=== PATIENT | female | born 1970 | race Caucasian/White ===

== ENCOUNTER 2016-05-18 17:56 | Observation (INO) | payer MEDICARE, OTHER ==
[2016-05-18] MEDS ORDERED: ASPIRIN 81 MG CHEW PO STA (18:39)
[2016-05-18] MEDS ORDERED: NITROGLYCERIN OINT 1 INCH/GM PACKET TOPICAL STA (18:39)
--- NOTE | 2016-05-18 18:42 | ED ---
General Adult HPI - General Chief complaint: Chest Pain Stated complaint: chest pain Time Seen by Provider: 05/18/16 18:20 Source: patient, RN notes reviewed Mode of arrival: wheelchair Limitations: no limitations - History of Present Illness Initial comments: Patient is a pleasant 46-year-old female presenting to the emergency department complaining of chest discomfort. Symptoms are mild at this time. Patient has been having symptoms over the past couple of months. Symptoms are somewhat exertional. Patient has an ache in her chest with radiation to the left arm. Patient does have associated dyspnea. Patient no nausea. Occasional sweating. No history of previous cardiac problems. Patient has been under increased stress recently. - Related Data Home Medications Medication Instructions Recorded Confirmed Ranitidine HCl 150 mg PO BID 05/18/16 05/18/16 Allergies Allergy/AdvReac Type Severity Reaction Status Date / Time sulfamethoxazole AdvReac Nausea & Verified 05/18/16 19:22 [From ] Vomiting trimethoprim [From ] AdvReac Nausea & Verified 05/18/16 19:22 Vomiting Review of Systems ROS Statement: Those systems with pertinent positive or pertinent negative responses have been documented in the HPI. ROS Other: All systems not noted in ROS Statement are negative. Constitutional: Denies: fever Eyes: Denies: eye pain ENT: Denies: ear pain Respiratory: Reports: dyspnea. 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 lap with lysis of adhesions. oophorectomy. ammy masectomy with reconstruction Past Anesthesia/Blood Transfusion Reactions: Previous Problems w/ Anesthesia Additional Past Anesthesia/Blood Transfusion Reaction / Comment(s): pt states she experienced some apnea post op Past Psychological History: Anxiety, Bipolar, Depression Additional Psychological History / Comment(s): currently no medications due to insurance issues. pt states she is stable at this time. she states that it has been a few months since she has had medications. she now has insurance and will be making appts to see a primary care and a psychiatrist Smoking Status: Never smoker Past Alcohol Use History: None Reported Past Drug Use History: None Reported - Past Family History Mother Family Medical History: Cancer Additional Family Medical History / Comment(s): of breast cancer at age 40 Father Family Medical History: Coronary Artery Disease (CAD), Myocardial Infarction (CT ) Additional Family Medical History / Comment(s): "hardening of arteries", " from cardiac arrest due to pancreatitis" General Exam Limitations: no limitations General appearance: alert, in no apparent distress Head exam: Present: atraumatic Eye exam: Present: normal appearance, PERRL ENT exam: Present: normal oropharynx Respiratory exam: Present: normal lung sounds bilaterally. Absent: chest wall tenderness Cardiovascular Exam: Present: regular rate, normal rhythm Expanded Peripheral pulses: 2+: Radial (R), Radial (L), Dorsalis Pedis (R), Dorsalis Pedis (L) GI/Abdominal exam: Present: soft. Absent: tenderness Extremities exam: Present: normal inspection. Absent: pedal edema, calf tenderness Neurological exam: Present: alert Psychiatric exam: Present: normal affect, normal mood Skin exam: Absent: rash Course Vital Signs 05/18/16 05/18/16 18:06 18:59 Temperature 97.1 F L Pulse Rate 89 Respiratory 18 16 Rate Blood Pressure 139/83 O2 Sat by Pulse 98 Oximetry EKG Findings - EKG Comments: EKG Findings:: Normal sinus rhythm at 91. MN 142. QRS 98. QT 44. QTC 509. Normal axis. Normal QRS. Nonspecific T waves. Medical Decision Making - Medical Decision Making Patient reexamined and resting comfortably in bed. Patient updated on results and plan. Case discussed with practitioner Joceline, who will admit for hospital call. She is covering for Dr. quesada. Admission orders written. Consult placed for cardiology. IV heparin started. - Lab Data Result diagrams: 05/18/16 18:15 05/18/16 18:15 Lab Results 05/18/16 05/18/16 05/18/16 Range/Units 18:15 18:15 18:15 WBC 6.6 (3.8-10.6) k/uL RBC 4.58 (3.80-5.40) m/uL Hgb 14.3 (11.4-16.0) gm/dL Hct 39.6 (34.0-46.0) % MCV 86.5 (80.0-100.0) fL MCH 31.2 (25.0-35.0) pg MCHC 36.1 (31.0-37.0) g/dL RDW 13.1 (11.5-15.5) % Plt Count 277 (150-450) k/uL Neutrophils % 45 % Lymphocytes % 41 % Monocytes % 7 % Eosinophils % 4 % Basophils % 1 % Neutrophils # 3.0 (1.3-7.7) k/uL Lymphocytes # 2.7 (1.0-4.8) k/uL Monocytes # 0.4 (0-1.0) k/uL Eosinophils # 0.3 (0-0.7) k/uL Basophils # 0.0 (0-0.2) k/uL PT (9.0-12.0) sec INR (<1.1) APTT (22.0-30.0) sec Sodium 143 (137-145) mmol/L Potassium 3.7 (3.5-5.1) mmol/L Chloride 106 (98-107) mmol/L Carbon Dioxide 26 (22-30) mmol/L Anion Gap 11 mmol/L BUN 11 (7-17) mg/dL Creatinine 0.77 (0.52-1.04) mg/dL Est GFR (MDRD) Af Amer >60 (>60 ml/min/1.73 sqM) Est GFR (MDRD) Non-Af >60 (>60 ml/min/1.73 sqM) Glucose 103 H (74-99) mg/dL Calcium 9.9 (8.4-10.2) mg/dL Magnesium 2.1 (1.6-2.3) mg/dL Total Bilirubin 0.7 (0.2-1.3) mg/dL AST 25 (14-36) U/L ALT 29 (9-52) U/L Alkaline Phosphatase 66 (38-126) U/L Total Creatine Kinase 93 (30-135) U/L CK-MB (CK-2) 0.7 (0.0-2.4) ng/mL CK-MB (CK-2) Rel Index 0.8 Troponin I <0.012 (0.000-0.034) ng/mL Total Protein 7.4 (6.3-8.2) g/dL Albumin 4.4 (3.5-5.0) g/dL 05/18/16 Range/Units 18:15 WBC (3.8-10.6) k/uL RBC (3.80-5.40) m/uL Hgb (11.4-16.0) gm/dL Hct (34.0-46.0) % MCV (80.0-100.0) fL MCH (25.0-35.0) pg MCHC (31.0-37.0) g/dL RDW (11.5-15.5) % Plt Count (150-450) k/uL Neutrophils % % Lymphocytes % % Monocytes % % Eosinophils % % Basophils % % Neutrophils # (1.3-7.7) k/uL Lymphocytes # (1.0-4.8) k/uL Monocytes # (0-1.0) k/uL Eosinophils # (0-0.7) k/uL Basophils # (0-0.2) k/uL PT 10.2 (9.0-12.0) sec INR 1.0 (<1.1) APTT 23.9 (22.0-30.0) sec Sodium (137-145) mmol/L Potassium (3.5-5.1) mmol/L Chloride (98-107) mmol/L Carbon Dioxide (22-30) mmol/L Anion Gap mmol/L BUN (7-17) mg/dL Creatinine (0.52-1.04) mg/dL Est GFR (MDRD) Af Amer (>60 ml/min/1.73 sqM) Est GFR (MDRD) Non-Af (>60 ml/min/1.73 sqM) Glucose (74-99) mg/dL Calcium (8.4-10.2) mg/dL Magnesium (1.6-2.3) mg/dL Total Bilirubin (0.2-1.3) mg/dL AST (14-36) U/L ALT (9-52) U/L Alkaline Phosphatase (38-126) U/L Total Creatine Kinase (30-135) U/L CK-MB (CK-2) (0.0-2.4) ng/mL CK-MB (CK-2) Rel Index Troponin I (0.000-0.034) ng/mL Total Protein (6.3-8.2) g/dL Albumin (3.5-5.0) g/dL - Radiology Data Radiology results: image reviewed (Chest x-ray shows no acute process) Critical Care Time Critical Care Time: Yes Total Critical Care Time: 32 Disposition Clinical Impression: Unstable angina pectoris Disposition: ADMITTED IP TO THIS HOSP
[2016-05-18 19:03] LABS: Basophils % (A) 1 %; CH 30.9; CHCM 35.9; Eosinophils # (A) 0.3 k/uL (0-0.7); Eosinophils % (A) 4 %; HCT 39.6 % (34.0-46.0); HDW 2.94; HGB 14.3 gm/dL (11.4-16.0); Luc # (Auto) 0.18; Luc % (Auto) 3; Lymphocytes # (A) 2.7 k/uL (1.0-4.8); Lymphocytes % (A) 41 %; MCH 31.2 pg (25.0-35.0); MCHC 36.1 g/dL (31.0-37.0); MCV 86.5 fL (80.0-100.0); Mean Platelet Volume 7.3; Monocytes # (A) 0.4 k/uL (0-1.0); Monocytes % (A) 7 %; Neutrophils % (A) 45 %; RBC 4.58 m/uL (3.80-5.40); RDW 13.1 % (11.5-15.5); WBC 6.6 k/uL (3.8-10.6); WBC (Perox) 6.64
[2016-05-18 19:12] LABS: Partial Thromboplastin Time 23.9 sec (22.0-30.0); Prothrombin Time 10.2 sec (9.0-12.0)
--- NOTE | 2016-05-18 19:12 | XR ---
EXAMINATION TYPE: XR chest 2V DATE OF EXAM: 05/18/2016 7:07 PM COMPARISON: 04/27/2010 HISTORY: Chest pain TECHNIQUE: Frontal and lateral views of the chest are obtained. FINDINGS: Heart and mediastinum are normal. Lungs are clear. Diaphragm is normal. There are chest le ads. Bony thorax is intact. IMPRESSION: Normal chest. No change.
[2016-05-18 19:14] LABS: ALT 29 U/L (9-52); AST 25 U/L (14-36); Alkaline Phosphatase 66 U/L (38-126); Anion Gap 11 mmol/L; Blood Urea Nitrogen 11 mg/dL (7-17); Calcium 9.9 mg/dL (8.4-10.2); Carbon Dioxide 26 mmol/L (22-30); Chloride 106 mmol/L (98-107); Glucose 103 mg/dL (74-99); Magnesium 2.1 mg/dL (1.6-2.3); Non-African American GFR(MDRD) >60 (>60 ml/min/1.73 sqM); Potassium 3.7 mmol/L (3.5-5.1); Sodium 143 mmol/L (137-145); Total Bilirubin 0.7 mg/dL (0.2-1.3); Total Protein 7.4 g/dL (6.3-8.2)
[2016-05-18 19:23] LABS: Creatine Kinase 93 U/L (30-135)
[2016-05-18 19:36] LABS: Creatine Kinase MB 0.7 ng/mL (0.0-2.4); Troponin I <0.012 ng/mL (0.000-0.034)
[2016-05-18] MEDS ORDERED: NITROGLYCERIN SL TABS 0.4 MG TAB SUBLINGUAL PRN (20:20)
[2016-05-18] MEDS ORDERED: HEPARIN SODIUM,PORCINE 5,000 UNIT/ML 1 ML VIAL IV PRN (20:20)
[2016-05-18] MEDS ORDERED: HEPARIN SODIUM,PORCINE 5,000 UNIT/ML 1 ML VIAL IV ONE (20:20)
[2016-05-18] MEDS ORDERED: HEPARIN SODIUM,PORCINE/D5W PMX 25,000 UNIT in DEXTROSE/WATER 1 500ML.BAG IV SCH (20:30)
[2016-05-18] MEDS ORDERED: FAMOTIDINE 20 MG TAB PO STA (20:56)
[2016-05-18] MEDS: NITROGLYCERIN OINT 1 INCH/GM PACKET TOPICAL SCH (22:13)
[2016-05-18] MEDS: FAMOTIDINE 20 MG TAB PO SCH (22:54)
[2016-05-19 04:55] LABS: Creatine Kinase 66 U/L (30-135); Creatine Kinase MB 0.5 ng/mL (0.0-2.4); Troponin I <0.012 ng/mL (0.000-0.034)
[2016-05-19] MEDS: NITROGLYCERIN OINT 1 INCH/GM PACKET TOPICAL SCH ×2 (06:24→12:50)
[2016-05-19 07:20] LABS: Creatine Kinase 70 U/L (30-135)
[2016-05-19 07:32] LABS: Creatine Kinase MB 0.5 ng/mL (0.0-2.4); Troponin I <0.012 ng/mL (0.000-0.034)
[2016-05-19 07:48] LABS: Mean Platelet Volume 7.8
[2016-05-19 08:04] LABS: Cholesterol 210 mg/dL (<200); HDL Cholesterol 48 mg/dL (40-60); Triglycerides 210 mg/dL (<150)
[2016-05-19 08:06] VITALS: TEMP 98.2
[2016-05-19] MEDS ORDERED: ASPIRIN 325 MG TAB PO SCH (09:00)
--- NOTE | 2016-05-19 11:05 | CONS ---
DATE OF CONSULTATION: Kellie Fox is a 46-year-old lady with a lot of multiple medical problems in the form of anxiety, some depression and also has seen her psychiatrist in the past, but stopped seeing physicians because of insurance issues. She presented to the hospital with an episode of what she described as a vague nondescript sharp pressure in the chest that lasted a few seconds and came on and off. The pain quality is very atypical and did not occur with physical activity. She is resting comfortably without symptoms. PAST MEDICAL HISTORY: Remarkable for anxiety, depression, and also some borderline hypertension. She has a history of bilateral mastectomy with reconstruction mainly because of a strong family history of breast cancer. At the time of my evaluation, she is resting comfortably without symptoms. SOCIAL HISTORY: The patient does not consume alcohol and does not smoke. MEDICATIONS AT HOME: She takes only ranitidine occasionally. Allergies are SULFA. On examination, blood pressure is 128/70, pulse rate 70 per minute, regular. HEENT: Unremarkable. Fundus was not examined by me. Neck is supple. No JVD. I do not hear a carotid bruit. There is no thyromegaly. Heart exam reveals S1 and S2 heard normally without rub, murmur or gallop. Lungs are clear. Abdomen is soft, nontender. Lower extremities reveal normal pulses. No edema. Central nervous system is normal. EKG revealed sinus mechanism. No acute changes. Chest x-ray did not reveal any significant abnormalities. Laboratory data revealed unremarkable troponins. IMPRESSION: 1. Atypical chest pain. 2. Anxiety and probably some depression. 3. Family history of coronary artery disease. RECOMMENDATIONS: I am recommending an echocardiogram and a stress echo and if these are normal, she can be discharged. I discussed my thoughts in detail with the patient. Thank you very much for the consult.
--- NOTE | 2016-05-19 11:36 | ECHOS ---
DATE OF SERVICE: 05/19/2016 AGE: 46Y SEX: F HT: 67" WT: 223 lbs. Protocol Ramo: X Others: Stress Echo Stage: 2 Dur. of Exercise: 5:15 *Heart Rate Blood Pressure *Rest: 82 Rest: 124/89 * *Max. Achieved: 156 Maximum BP: 169/90 85% PMHR: 147 100% PMHR: 173 *METS: 7.1 INDICATIONS: Unstable angina MEDICATIONS: Ranitidine. Patient was exercised for a total period of 5 minutes. The peak heart rate of 156 was achieved. Maximum blood pressure of 169/90 mmHg was noted. A resting EKG shows normal sinus rhythm with normal NM interval and QRS duration and normal ST-T waves. Exercise J-point depression with upsloping ST segments were noted. Patient complained of some atypical left arm pain during exercise. Baseline echocardiographic images reveal a normal left ventricular chamber size with normal left ventricular systolic function. In the immediate postexercise period, normal increase in the wall thickness and contractility is noted. This stress echocardiographic study is negative for stress-induced ischemia. EKG portion of the stress test is not suggestive of ischemia. Patient complained of atypical left arm pain during exercise.
[2016-05-19] MEDS: FAMOTIDINE 20 MG TAB PO SCH (11:45)
[2016-05-19 11:48] VITALS: BP 119/81; PULSE 79; RESP 18
--- NOTE | 2016-05-19 12:25 | ECHOF ---
Referral Reason:chest pain MEASUREMENTS -------- HEIGHT: 170.2 cm WEIGHT: 101.2 kg BP: 126/89 RVIDd: 3.0 cm (< 3.3) IVSd: 1.1 cm (0.6 - 1.1) LVIDd: 4.3 cm (3.9 - 5.3) LVPWd: 1.1 cm (0.6 - 1.1) IVSs: 1.5 cm LVIDs: 2.8 cm LVPWs: 1.5 cm LA Diam: 3.3 cm (2.7 - 3.8) LAESV Index (A-L): 14.41 ml/m Ao Diam: 3.0 cm (2.0 - 3.7) AV Cusp: 2.1 cm (1.5 - 2.6) MV EXCURSION: 12.755 mm (> 18.000) MV EF SLOPE: 73 mm/s (70 - 150) EPSS: 0.4 cm MV E Thad: 0.72 m/s MV DecT: 179 ms MV A Thad: 1.00 m/s MV E/A Ratio: 0.72 FINDINGS -------- Sinus rhythm. This was a technically adequate study. The left ventricular size is normal. There is borderline concentric left ventricular hypertrophy. The right ventricle is normal in size. Normal LA size by volume 22+/-6 ml/m2. The right atrium is normal in size. The aortic valve is trileaflet and appears structurally normal. Normal appearing mitral valve. No mitral regurgitation. The tricuspid valve appears structurally normal. The pulmonic valve is normal. There is no pulmonic regurgitation present. The aortic root size is normal. Normal inferior vena cava with normal inspiratory collapse consistent with estimated right atrial pressure of 5 mmHg. The pericardium is normal. CONCLUSIONS -------- 1. Sinus rhythm. 2. The tricuspid valve appears structurally normal. 3. The pulmonic valve is normal. 4. The aortic root size is normal. 5. Normal inferior vena cava with normal inspiratory collapse consistent with estimated right atrial pressure of 5 mmHg. 6. The pericardium is normal. 7. This was a technically adequate study. 8. The left ventricular size is normal. 9. There is borderline concentric left ventricular hypertrophy. 10. The right ventricle is normal in size. 11. Normal LA size by volume 22+/-6 ml/m2. 12. The right atrium is normal in size. 13. The aortic valve is trileaflet and appears structurally normal. 14. Normal appearing mitral valve. ELEMENTARY READING SPECIALIST: Susu Ngo RDCS
--- NOTE | 2016-05-20 10:20 | HP ---
DATE OF ADMISSION: HISTORY AND PHYSICAL AND DISCHARGE SUMMARY REASON FOR ADMISSION: Chest pain. HISTORY OF PRESENTING ILLNESS: This is a 46-year-old female with history of GERD comes into the hospital with complaints of intermittent chest pain that starts in her lower chest midsternal location to epigastric region radiating to her left shoulder. The pain is usually about 5 to 6 out of 10. No alleviating or aggravating factors reported. Denies having any association with meals, deep breathing, exertion. In the emergency room, the patient's EKG did not reveal ST-T wave changes. Initial cardiac enzymes were negative. At the time of my evaluation, the patient denies having any headaches, no blurry vision, nausea, vomiting, urinary urgency, difficulty in breathing. Patient does state to have some pain that is reproducible in the upper abdominal region. Past medical history includes GERD. Past surgical history includes multiple endoscopies. Social history includes remote history of smoking. No alcohol or illicit drug use. FAMILY HISTORY: Premature heart disease reported on the paternal side. REVIEW OF SYSTEMS: Fourteen-point review of system was done; none pertinent other than other than what was mentioned above. Medications include Zantac 150 mg p.o. b.i.d. ALLERGIES: BACTRIM and TRIMETHOPRIM. PHYSICAL EXAMINATION: VITAL SIGNS: Temperature is 98.2, heart rate 62, respiratory rate 16, blood pressure 123/79, saturating 99 on 2 L of supplemental oxygen. PHYSICAL EXAM: Temperature is , heart rate is , respiration rate is per minute, blood pressure is and patient is saturating % on room air. GENERALLY: Patient appears to be alert, oriented x3. HEENT: The pupils are equal and reactive to light and accommodation. HEART: S1, S2 present. No murmur appreciated. LUNGS: Good air entry. No wheezing or rhonchi noted. ABDOMINAL EXAM: There is tenderness in the epigastric region, focal. GENITOURINARY: No Hernandez in place. EXTREMITIES: Pulses can be palpated distally. Denies any tenderness on gross palpation. SKIN: On a gross skin exam does not appear to have any purpura or any skin rashes that were noted. NEUROLOGICALLY: Grossly cranial nerves 2-12 intact. No motor or sensory deficits noted. Laboratory data includes hemoglobin 14.3, hematocrit 39.6, platelets of 277, white count 6.6. Sodium 143, potassium 3.7, chloride 106, bicarb 26, BUN 11, creatinine 0.77. Cholesterol is elevated; however, LDL is 120. Cardiac enzymes x3 are less than 0.012. ASSESSMENT AND PLAN: 1. Atypical chest. 2. Gastroesophageal reflux disease. 3. Borderline elevated cholesterol. In regards to cholesterol, did discuss weight and conservative measures at this time. Patient on questioning further in regards to her pain in the upper epigastric region does state to have severe GERD, has had an upper endoscopy over 6 months ago, was told that it was within normal limits. However, over the last few weeks, the patient apparently has been having night symptoms of epigastric pain and reflux symptoms, has noted some dark stools in the recent times. Patient apparently was told that she has some precancerous cells in the lower esophagus as well. I did discuss the night symptoms are concerning as they are alarm symptoms and that patient needs to undergo another endoscopy. Hence, patient will be referred to a kiln remover, has seen Dr. Verma in the past. Patient will be started on Prilosec 20 mg p.o. b.i.d. as a trial and as patient has had a recent endoscopy will be discharged home to follow up. I did discuss if patient's symptoms worsen should come back in to the hospital. The pain is concerning for a large gastric ulcer. However, a trial of PPI will be attempted as patient's hemoglobin is stable. FOLLOWUPS: Dr. Verma. Medication changes as described above. The patient is discharged home in stable condition.
== END 2016-05-19 15:45 | disposition home or self-care (01) ==
LOC: EC 17:56 → 3OBS 20:20
PROVIDERS: ADMIT Internal Medicine; ATTEND Internal Medicine
DX: R07.89 Other chest pain (principal); K21.9 Gastro-esophageal reflux disease without esophagitis; E78.00 Pure hypercholesterolemia, unspecified; I10 Essential (primary) hypertension; Z79.899 Other long term (current) drug therapy; Z87.891 Personal history of nicotine dependence; R06.00 Dyspnea, unspecified; Z88.1 Allergy status to other antibiotic agents; Z82.49 Family history of ischemic heart disease and other diseases of the circulatory system
CPT/HCPCS: 99291 ×2; 96365 ×2; 96376 ×2; 36415; 93005; 93017; 93306; 80061; 80053; 82550 ×2; 82553 ×2; 83735; 84484 ×2; 85025; 85049; 85610; 85730 ×2; 71020; G0378 ×2; C8928; J1644 ×3; Q9957; 93350; 96366

== ENCOUNTER → 2016-12-19 | Outpatient (CLI) | payer MEDICARE, OTHER ==
--- NOTE | 2016-12-19 18:41 | CONS ---
CONSULTATION REASON FOR CONSULTATION: Chronic hypersomnia. This is a 46-year-old female patient who is coming in to be evaluated for chronic hypersomnia. She has excessive fatigue and sleepiness and she is having a hard time keeping herself awake during the day. She goes to bed around 9:30 p.m. and she wakes up 8:00 am in the morning. As such, she is having at least 9 to 10 hours of sleep every night. She may take a nap during the day in addition. She has some limited snoring. No witnessed apneas. No restlessness in lower extremities. No waking up in the middle of the night, choking or gasping for air. In fact, this patient has been in sleep center back in 2009. She had an evaluation with Dr. Andre. Back then, the patient used to weigh 202 pounds and she has gained around 20 pounds since then. She underwent a screening polysomnogram back then and she was found to have mild snoring without any significant sleep breathing disorder. Her apnea-hypopnea index was less than 5 and she did not demonstrate any significant nocturnal oxygen desaturation. Her sleep study back then showed increased sleep efficiency of 94%. The sleep architecture was essentially within normal without any over-representation of REM sleep. She had a latency to sleep onset of 20 minutes. No periodic limb movements. As such, the patient had a 2nd day MSLT that showed a mean sleep latency of 5.4 minutes and the patient did not have any REM onset sleep. Based on these findings, the patient was given Adderall, which she took for quite some time with good success; however, ultimately medication was stopped, as the patient has lost her insurance. Clinically, the patient is having the same symptoms that she used to have back in 2009. No sleepwalking. No sleep talking. No parasomnias. No head trauma. No substance abuse. She has some degree of anxiety and depression for which she was started on Abilify by her psychiatrist. No excessive eating. No unusual or aggressive behavior at nighttime. Her current Holbrook Score is at 14. PAST MEDICAL HISTORY: 1. Chronic hypersomnia. 2. Anxiety. 3. Depression. 4. Positive BRCA gene and the patient has undergone bilateral hysterectomy with oophorectomy and hysterectomy in addition to history of hypertension. SURGICAL HISTORY: Includes bilateral salpingo-oophorectomy, hysterectomy and bilateral mastectomy with reconstruction surgery. FAMILY HISTORY: Negative for sleep apnea, negative for narcolepsy. Sister has multiple myeloma, another sister with breast cancer and her mother had breast cancer. OUTPATIENT MEDICATION LIST: Includes: 1. Abilify. 2. Potassium tablets. 3. Lasix tablets and. 4. Lisinopril. SOCIAL HISTORY: Nonsmoker. No history of alcoholism. No history of IV drugs. REVIEW OF SYSTEMS: A 12-point review of system was done and positive findings are all mentioned above in the history of present illness. No history of falling asleep while driving. Her weight is up by around 20 pounds over the past 10 years. She sleeps in different body positions. She may take a nap or two during the day. No nocturia. No nocturnal nighttime palpitations. Occasional nighttime heartburn. She has anxiety. No . No sexual dysfunction. No irritability. She is worried about her sleepiness in general. CURRENT VITAL SIGNS: Her blood pressure is 133/83, pulse 90, respirations 16, temperature 98.3, saturation 94% on room air. BMI 34.8, weight is 226, height is 5 feet 3 inches. Neck size is 14-1/2 inches. GENERAL APPEARANCE: Calm comfortable. No acute distress. HEAD: Atraumatic, normocephalic. NECK: Supple. There is no JVD. No goiter or neck masses. Mallampati class IV. LUNGS: Clear to auscultation. HEART: Sounds regular rate and rhythm. Normal S1, S2. No S3, S4. No murmurs. ABDOMEN: Soft, nontender. No organomegaly. EXTREMITIES: No edema. No cyanosis or clubbing. IMPRESSION: 1. Chronic hypersomnia. The patient was investigated back in 2009. Investigation included polysomnogram and 2nd day multiple sleep latency tests. Based on the findings, there was no evidence of any sleep breathing disorder or any other abnormalities causing disruption in her sleep quality. In fact, her polysomnogram was negative. Multiple sleep latency tests confirms pathologic sleepiness and the patient was given a diagnosis of primary idiopathic hypersomnia. Her mean sleep latency was 5.4 hours. She did not fit the criteria of narcolepsy. Based on that, the patient was given stimulants. 2. Chronic hypersomnia with an Holbrook score of 14. 3. Obesity. 4. Anxiety/depression. 5. Hypertension. PLAN: There are no obvious comorbidities contributing to the patient's hypersomnia. Obviously, a low-grade depression maybe one component. Based on that, I am going to ask this patient to be re-evaluated again with her psychiatrist and see if there is any role for any stimulating antidepressant. In addition, the patient will be given Provigil 12 mg p.o. daily. I did start that and the patient will see me back in followup in 6 weeks' time. THADDEUS / LIZ: [id number] /
== END | disposition home or self-care (01) ==
LOC: SLEEP 16:30
PROVIDERS: ATTEND Internal Medicine Critical Care Medicine
DX: G47.10 Hypersomnia, unspecified (principal); F32.9 Major depressive disorder, single episode, unspecified; F41.9 Anxiety disorder, unspecified; I10 Essential (primary) hypertension; E66.9 Obesity, unspecified; Z68.34 Body mass index [BMI] 34.0-34.9, adult; Z79.899 Other long term (current) drug therapy
CPT/HCPCS: 99204; 99211

== ENCOUNTER → 2017-04-09 | Outpatient (CLI) | payer MEDICARE, OTHER ==
[2017-04-09 10:35] LABS: ALT 38 U/L (9-52); AST 26 U/L (14-36); Cholesterol 222 mg/dL (<200); HDL Cholesterol 47 mg/dL (40-60); LDL Cholesterol,Calculated 145 mg/dL (0-99); Triglycerides 152 mg/dL (<150)
== END | disposition home or self-care (01) ==
LOC: LABWHC1 09:22
PROVIDERS: ATTEND Internal Medicine Cardiovascular Disease
DX: E78.5 Hyperlipidemia, unspecified (principal)
CPT/HCPCS: 36415; 80061; 84450; 84460

== ENCOUNTER → 2017-05-03 | Outpatient (CLI) | payer MEDICARE, OTHER ==
--- NOTE | 2017-05-03 13:42 | SFUN ---
SLEEP STUDY FOLLOW UP NOTE DATE OF SERVICE: 05/03/2017 A 47-year-old lady had been followed in sleep center to discuss results of sleep studies for treatment of severe excessive daytime sleepiness. The patient had been diagnosed with hypersomnia in 2009. At that time during the multiple sleep latency test, mean sleep latency was 5.4 minutes and the patient slept at that time on the previous night for 6.8 hours. At that time, patient was treated with Adderall and feels better. Presently, the patient had another polysomnogram with following multiple sleep latency test. Polysomnogram did not show any significant respiratory abnormalities and multiple sleep latency test showed mean sleep latency only 6.8 minutes with one sleep onset REM period, but on the previous night, the patient slept only for 4 hours. Patient continued to have symptoms of significant excessive daytime sleepiness. [place] Sleepiness Scale scoring today is 15. MEDICATIONS: Abilify, Klonopin, lisinopril, Protonix. PHYSICAL EXAM: During physical exam, patient in no distress. VITAL SIGNS: BP 136/94 on the right arm, on left arm 138/94, RR 16, height 5 feet, 7 inches, weight 224, BMI 35, temp 98.1, oxygen saturation on room air 97%. HEENT: PERRLA, EOMI. Oropharynx moderately low position of soft palate. NECK: Supple, no JVD. Thyroid is not palpable. LUNGS: Clear to percussion and to auscultation. Good air exchange. No wheezing or rhonchi. HEART: S1, S2 regular. No murmurs, gallops, or rubs. ABDOMEN: Slightly obese. EXTREMITIES: No clubbing or cyanosis. BIOPHYSICS TEACHER: Awake, alert, and oriented X3. Cranial nerves 2 to 7 intact. There is no fasciculation or atrophy. noted. No focal deficits observed. IMPRESSION: 1. Significant excessive daytime sleepiness, confirmed by multiple sleep latency test in 2009. At the present time, multiple sleep latency test again showed short sleep latency, but on the previous night, the patient slept only for 4 hours, one sleep onset REM period had been documented. Differential diagnosis include idiopathic hypersomnia and narcolepsy. 2. No significant respiratory abnormalities have been documented during the sleep study. 3. Episodes of hypertension in medical office. 4. Acid reflux. 5. Obesity. 6. History of depression. 7. History of anxiety. 8. History of bipolar disorder. 9. Status post total hysterectomy. 10.Status post bilateral mastectomy. PLAN: 1. The patient will be started on small doses of Adderall to prevent symptoms of excessive daytime sleepiness. 2. Sleep hygiene with regular time in bed for at least 8 hours. 3. No driving if feeling any sleepiness. 4. Daytime naps permitted. Thank you very much for allowing me to participate in management of your patient. Sincerely, Peter Andre MD, PhD, FAASM Diplomat of [employer] [facility] [place] MMODL / IJN: [id number] /
== END | disposition home or self-care (01) ==
LOC: SLEEP 11:49
PROVIDERS: ATTEND Internal Medicine
DX: G47.10 Hypersomnia, unspecified (principal); I10 Essential (primary) hypertension; K21.9 Gastro-esophageal reflux disease without esophagitis; E66.9 Obesity, unspecified; Z86.59 Personal history of other mental and behavioral disorders; Z90.710 Acquired absence of both cervix and uterus; Z90.13 Acquired absence of bilateral breasts and nipples; Z79.899 Other long term (current) drug therapy

== ENCOUNTER → 2017-07-19 | Outpatient (CLI) | payer MEDICARE, OTHER ==
--- NOTE | 2017-07-19 17:54 | PN ---
PROGRESS NOTE DATE OF SERVICE: 07/19/2017 A 47-year-old lady who has been followed in sleep center for treatment of possible narcolepsy. Patient was started on treatment with Adderall 5 mg at 9:00 a.m. and at 2:00 p.m. No side effects. No tachycardia. No increasing blood pressure, but no improving of patient feeling during the day, also. She still continues to feel sleepiness. [place] Sleepiness Scale today is 13. MEDICATIONS: 1. Abilify. 2. Klonopin. 3. Lisinopril. 4. Protonix. 5. Adderall. PHYSICAL EXAMINATION: GENERAL Patient in no distress. VITAL SIGNS BP 126/66, HR 77, RR 18, height 5 feet 7-1/3 inches, weight 225.2, BMI 34.9, temp 98.1, oxygen saturation at room air 98%. HEENT PERRLA, EOMI, evaluation of oropharynx showed tongue protrudes midline, moderately low position of soft palate. Neck Supple, no JVD. Thyroid is not palpable. LUNGS Clear to percussion and to auscultation. Good air exchange. No wheezing or rhonchi. HEART S1, S2 regular. No murmurs, gallops, or rubs. ABDOMEN Slightly obese, soft and nontender. Bowel sounds are present. No organomegaly appreciated. EXTREMITIES No clubbing or cyanosis. PROSTHETIST Awake, alert, and oriented X3. Cranial nerves 2 to 7 intact. There is no fasciculation or atrophy. noted. No focal deficits observed. IMPRESSION: 1. Possible narcolepsy confirmed by multiple sleep latency test in 2009. The patient continued to have symptoms of excessive daytime sleepiness. 2. History of episodes of hypertension in medical office. No hypertension today. 3. Acid reflux. 4. Obesity. 5. History of depression. 6. History of anxiety. 7. History of bipolar disorder. 8. Status post total hysterectomy. 9. Status post bilateral mastectomy. PLAN: 1. The patient will continue to use Adderall. I will increase dose to 10 mg 2 times a day at 9:00 a.m. and 2:00 p.m. 2. Precautions related to driving: No driving if feeling sleepiness. 3. A losing weight. 4. Sleep hygiene with regular time in bed for at least 8 hours. Thank you very much for allowing me to participate in management of your patient. Sincerely, Peter Andre MD, PhD, FAASM Diplomat of [place] [employer] [place] [employer] Shredded Filler Machine W[employer] [facility] [place] MMCRISTOBAL / LIZ: [id number] /
== END | disposition home or self-care (01) ==
LOC: SLEEP 16:55
PROVIDERS: ATTEND Internal Medicine
DX: G47.10 Hypersomnia, unspecified (principal); K21.9 Gastro-esophageal reflux disease without esophagitis; E66.9 Obesity, unspecified; Z68.34 Body mass index [BMI] 34.0-34.9, adult; Z86.59 Personal history of other mental and behavioral disorders; Z90.710 Acquired absence of both cervix and uterus; Z90.13 Acquired absence of bilateral breasts and nipples; Z79.899 Other long term (current) drug therapy

== ENCOUNTER → 2017-10-18 | Outpatient (CLI) | payer MEDICARE, OTHER ==
--- NOTE | 2017-10-18 20:03 | PN ---
PROGRESS NOTE DATE OF SERVICE: 10/18/2017 The 47-year-old lady who has been followed in Sleep Center for treatment of possible narcolepsy. Presently, patient is on treatment with Adderall 10 mg 2 times a day and with this regimen, she feel that her sleepiness is under control. [place] Sleepiness Scale today is 10, which is better than during previous visits. MEDICATIONS: Abilify, Klonopin, lisinopril, Protonix, and Adderall, Lipitor. PHYSICAL EXAM: Patient in no distress. BP 127/69, HR 79, RR 18, height 5 feet 7 inches, weight 221.4, BMI 36.6, temperature 98.2, oxygen saturation room air 96%. Oropharynx moderately low position of soft palate. Abdomen slightly obese. Neck Supple, no JVD. Thyroid is not palpable. LUNGS Clear to percussion and to auscultation. Good air exchange. No wheezing or rhonchi. HEART S1, S2 regular. No murmurs, gallops, or rubs. ABDOMEN: Obese. Soft and nontender. Bowel sounds are present. No organomegaly appreciated. EXTREMITIES No clubbing or cyanosis. DIRECTOR OF CLINICAL EDUCATION Awake, alert, and oriented X3. Cranial nerves 2 to 7 intact. There is no fasciculation or atrophy. noted. No focal deficits observed. IMPRESSION: 1. Possible narcolepsy by results of multiple sleep latency test in 2009. The patient alertness normalize while on treatment with Adderall 10 mg 2 times a day at 9:00 a.m. and 2:00 pm. 2. History of episodes of hypertension in the office. Blood pressure is under control. 3. Acid reflux. 4. Mild obesity. 5. History of depression. 6. History of anxiety. 7. History of bipolar disorder. 8. Status post total hysterectomy. 9. Status post bilateral mastectomy. PLAN: 1. Patient will continue to use Adderall 10 mg at 9:00 a.m. and 2:00 pm. 2. Precautions related to driving. No driving if feeling sleepiness. Patient is aware about civil and criminal liability for unsafe driving. 3. Sleep hygiene with regular time in bed for at least 8 hours. 4. Daytime naps permitted. Thank you very much for allowing me to participate in management of your patient. MMODL / IJN: [id number] /
== END | disposition home or self-care (01) ==
LOC: SLEEP 16:16
PROVIDERS: ATTEND Internal Medicine
DX: R40.0 Somnolence (principal); M27.8 Other specified diseases of jaws; K21.9 Gastro-esophageal reflux disease without esophagitis; I10 Essential (primary) hypertension; E66.9 Obesity, unspecified; F32.9 Major depressive disorder, single episode, unspecified; F41.9 Anxiety disorder, unspecified; Z90.710 Acquired absence of both cervix and uterus; Z90.13 Acquired absence of bilateral breasts and nipples; Z68.36 Body mass index [BMI] 36.0-36.9, adult; Z79.899 Other long term (current) drug therapy

== ENCOUNTER → 2017-12-07 | Outpatient (CLI) | payer MEDICARE, OTHER ==
--- NOTE | 2017-12-07 16:05 | MR ---
EXAMINATION TYPE: MR angio head wo con DATE OF EXAM: 12/07/2017 COMPARISON: None HISTORY: Occipital neuralgia /Family hx CONTRAST: None TECHNIQUE: Multiplanar multiecho imaging on a 3.0 Tejal magnet is performed through the [place]. 3-D [id number] imaging is performed. Source images are reviewed on the computer in the axi al plane. Reconstructed images rotating on the computer are reviewed. FINDINGS: The internal carotid arteries bifurcate into A1 and M1 segments. The left A1 segment is se verely hypoplastic. The A2 segments are normal. Middle cerebral artery branches are normal. Anterior communicating artery is patent. The right posterior communicating artery is patent. The left posterior communicating artery is patent. Left vertebral artery is dominant. Vertebrobasilar arteries within the [id number] are normal. Po sterior cerebral vasculature is normal. No suspicious aneurysm or aneurysmal dilatation is evident. No obstructions are identified. No significant flow-limiting stenosis is evident. IMPRESSIONS: 1. NORMAL MRA [place]. 2. Congenital variations present.
--- NOTE | 2017-12-07 16:07 | MR ---
EXAMINATION TYPE: MR brain wo con DATE OF EXAM: 12/07/2017 COMPARISON: CT brain 06/02/2013 HISTORY: Occipital neuralgia /Family hx CONTRAST: Performed utilizing 0 mL intravenous Gadavist gadolinium contrast. TECHNIQUE: Multiplanar, multiecho imaging on a 3.0 Tejal magnet is performed through the brain. Stud y is performed within 24 hours of arrival to the hospital. The craniovertebral junction is normal. The pituitary is normal. Diffusion-weighted imaging is performed. No abnormal hyperintensity is present to suggest an acute i ntracranial infarct or acute ischemic change. There are scattered punctate areas of hyperintensity on T2 and Inversion Recovery weighted sequences which are non-specific but can be related to microvascular ischemic changes. Ventricles and sulci are appropriate for the patient age. IMPRESSIONS: 1. Normal noncontrast MRI brain.
== END ==
LOC: RADMRIMAIN 14:37
PROVIDERS: ATTEND Psychiatry & Neurology Neurology
DX: Q04.9 Congenital malformation of brain, unspecified (principal); Z82.49 Family history of ischemic heart disease and other diseases of the circulatory system
CPT/HCPCS: 70544; 70551

== ENCOUNTER → 2018-01-09 | Outpatient (CLI) | payer MEDICARE, OTHER ==
[2018-01-09 18:16] LABS: T4, Free (Free Thyroxine) 0.96 ng/dL (0.78-2.19)
--- NOTE | 2018-01-09 23:24 | US ---
EXAMINATION TYPE: US carotid duplex BILAT DATE OF EXAM: 01/09/2018 COMPARISON: MRA 12/07/2017 CLINICAL HISTORY: 47-year-old female R26.89 ABN GAIT MOBILITY. TECHNIQUE: Carotid duplex ultrasound examination. An direct Doppler criteria was utilized. FINDINGS: EXAM MEASUREMENTS: RIGHT: Peak Systolic Velocity (PSV) cm/sec ----- Right CCA: 101.1 ----- Right ICA: 77.9 ----- Right ECA: 105.5 ICA/CCA ratio: 0.8 RIGHT: End Diastole cm/sec ----- Right CCA: 35.7 ----- Right ICA: 32.8 ----- Right ECA: 14.0 LEFT: Peak Systolic Velocity (PSV) cm/sec ----- Left CCA: 106.6 ----- Left ICA: 78.8 ----- Left ECA: 77.4 ICA/CCA ratio: 0.7 LEFT: End Diastole cm/sec ----- Left CCA: 30.0 ----- Left ICA: 40.0 ----- Left ECA: 17.6 VERTEBRALS (direction of flow): Right Vertebral: Antegrade Left Vertebral: Antegrade Rhythm: Normal Mild amount of plaque visualized, no elevated velocities, no significant stenosis. IMPRESSION: No hemodynamically significant stenosis appreciated in either internal carotid artery. Criteria for Assigning % of Stenosis / Diameter reduction (Estimation based on the indirect measurements of the internal carotid artery velocities (ICA PSV). 1. Normal (no stenosis)=ICA PSV < 125 cm/s: ratio < 2.0: ICA EDV<40 cm/s. 2. Less than 50% stenosis=ICA PSV < 125 cm/s: ratio < 2.0: ICA EDV<40 cm/s. 3. 50 to 69% stenosis=ICA PSV of 125 to 230 cm/s: ration 2.0 ? 4.0: ICA EDV 40-100 cm/s. 4. Greater than 70% stenosis to near occlusion= ICA PSV > 230 cm/s: ratio > 4.0: ICA EDV > 100 cm/s. 5. Near occlusion= ICA PSV velocities may be low or undetectable: variable ratio and ICA EDV. 6. Total occlusion=unable to detect flow.
[2018-01-10 03:09] LABS: Vitamin D 25 Hydroxy 16.1 ng/mL (30.0-100.0)
== END ==
LOC: RADUSWWP 16:34
PROVIDERS: ATTEND Psychiatry & Neurology Neurology
DX: R26.89 Other abnormalities of gait and mobility (principal); R41.0 Disorientation, unspecified
CPT/HCPCS: 36415; 82306; 82607; 84439; 84443; 93880

== ENCOUNTER → 2018-02-14 | Outpatient (CLI) | payer MEDICARE, OTHER ==
--- NOTE | 2018-02-14 15:58 | PN ---
PROGRESS NOTE DATE OF SERVICE: 02/14/2018 47-year-old lady who been followed in Sleep Center for treatment of narcolepsy. The patient successfully continued to take her medication for narcolepsy. She is taking Adderall 10 mg 2 times a day. With this medication, she feels pretty well during the day. No symptoms of significant excessive daytime sleepiness. No significant side effects. [place] Sleepiness Scale today is only 3. MEDICATIONS: Abilify, Klonopin, lisinopril, Protonix, Lipitor. PHYSICAL EXAM: Patient in no distress. BP 117/73 in the left arm, HR 85, RR 16, height 5 feet 7-1/4 inches, weight 219.0 with the machine, 34.0, temperature 98.2, oxygen saturation at room air 100%. Oropharynx: Moderately low position of soft palate. Neck Supple, no JVD. Thyroid is not palpable. LUNGS Clear to percussion and to auscultation. Good air exchange. No wheezing or rhonchi. HEART S1, S2 regular. No murmurs, gallops, or rubs. ABDOMEN: Slightly obese. Soft and nontender. Bowel sounds are present. No organomegaly appreciated. EXTREMITIES No clubbing or cyanosis. SHRIMP TRAWLER Awake, alert, and oriented X3. Cranial nerves 2 to 7 intact. There is no fasciculation or atrophy. noted. No focal deficits observed. IMPRESSION: 1. Possible narcolepsy by results of multiple sleep latency test in 2009. 2. History of episodes of hypertension. 3. Mild obesity. 4. History of depression. 5. History of anxiety. 6. History of bipolar. 7. Status post total hysterectomy. 8. Status post bilateral mastectomy. PLAN: 1. Patient will continue to take Adderall with the same dose 10 mg 2 times a day at 9:00 am and 2:00 pm. 2. Sleep hygiene with regular time in bed for at least 8 hours. Sleeping comfortably . 3. No driving if feeling sleepiness. 4. Losing weight. Thank you very much for allowing me to participate in management of your patient. Sincerely, Peter Andre MD, PhD, FAASM Diplomat of [place] [employer] Specialties [place] [employer] of Internal Medicine Valet Manager of [facility] [place] MMODL / IJN: [id number] /
== END | disposition home or self-care (01) ==
LOC: SLEEP 14:59
PROVIDERS: ATTEND Internal Medicine
DX: E66.9 Obesity, unspecified (principal); I10 Essential (primary) hypertension; Z86.69 Personal history of other diseases of the nervous system and sense organs; Z90.710 Acquired absence of both cervix and uterus; Z90.13 Acquired absence of bilateral breasts and nipples; Z79.899 Other long term (current) drug therapy

== ENCOUNTER → 2020-03-29 | Outpatient (CLI) | payer MEDICARE, OTHER ==
[2020-03-29 09:28] VITALS: BP 129/85; PULSE 77; RESP 16; TEMP 98
--- NOTE | 2020-03-29 09:40 | P.CONS ---
History of Present Illness - Reason for Consult Consult date: 03/29/20 - Chief Complaint Headache - History of Present Illness This is a 50-year-old lady with history of headache for the last 2 months which has been happening on a daily basis. There are no precipitating events and the patient denies any photophobia or nausea or vomiting with the headache. The headache starts in the occipital area and extends to the temporal area. The patient had similar headaches long time ago for which she received occipital nerve blocks which helped her pain significantly. The patient describes her pain as a steady in quality. The patient does not take anything for her pain she just relaxes and she avoids steak and even Tylenol or ibuprofen because of her fear of increasing her tendency to catch Covid 19. The pain occasionally increases by neck movement however this is not a constant complaint. She occasionally gets blurred vision however she had seen an property utilization officer who ruled out any issues with her vision. She does have history of well-controlled hypertension. The patient describes episodes of tingling or funny feeling in her scalp similar to hitting the nerve in her elbow as she states. Past Medical History Past Medical History: Hyperlipidemia, Hypertension Additional Past Medical History / Comment(s): has a type of Narcolepsy, breast and ovarian ca prone, depression History of Any Multi-Drug Resistant Organisms: None Reported Past Surgical History: Breast Surgery, Cholecystectomy, Hysterectomy Additional Past Surgical History / Comment(s): expl. lap with lysis of adhesions. oophorectomy. ammy masectomy with reconstruction. COLONOSCOPY/EGD Past Anesthesia/Blood Transfusion Reactions: Previous Problems w/ Anesthesia Additional Past Anesthesia/Blood Transfusion Reaction / Comm: pt states she experienced some apnea post op Past Psychological History: ADD/ADHD, Anxiety, Bipolar, Depression, PTSD Additional Psychological History / Comment(s): currently no medications due to insurance issues. pt states she is stable at this time. she states that it has been a few months since she has had medications. she now has insurance and will be making appts to see a primary care and a psychiatrist Smoking Status: Never smoker Past Alcohol Use History: None Reported Past Drug Use History: None Reported - Past Family History Mother Family Medical History: Cancer Additional Family Medical History / Comment(s): of breast cancer at age 40 Father Family Medical History: Coronary Artery Disease (CAD), Myocardial Infarction ([place]) Additional Family Medical History / Comment(s): "hardening of arteries", " from cardiac arrest due to pancreatitis" Medications and Allergies Home Medications Medication Instructions Recorded Confirmed Type Pantoprazole [Protonix] 40 mg PO DAILY #30 tablet. 05/19/16 03/24/20 Rx Atorvastatin [Lipitor] 40 mg PO DAILY 03/24/20 03/24/20 History Dextroamphetamine/Amphetamine 10 mg PO DAILY 03/24/20 03/24/20 History [Adderall] Ergocalciferol (Vitamin D2) 1,250 mcg PO MO 03/24/20 03/24/20 History [Vitamin D2 (50,000 Iu)] Lisinopril-Hctz 10-12.5 mg 1 tab PO DAILY 03/24/20 03/24/20 History [Zestoretic 10-12.5] Allergies Allergy/AdvReac Type Severity Reaction Status Date / Time sulfamethoxazole AdvReac Nausea & Verified 03/24/20 15:09 [From ] Vomiting trimethoprim [From ] AdvReac Nausea & Verified 03/24/20 15:09 Vomiting Physical Exam Vitals: Vital Signs Temp Pulse Resp BP Pulse Ox 03/29/20 09:14 98.0 F 77 16 129/85 99 - Constitutional General appearance: obese - EENT Eyes: PERRLA - Neurologic Neuro exam of the upper extremities showed normal and symmetrical muscle strength bilaterally. There is no tenderness in the cervical paravertebral musculature or in the occipital area bilaterally. Neurologic: CNII-XII intact - Psychiatric Psychiatric: A&O x's 3, appropriate affect, intact judgment & insight Assessment and Plan Plan: This is a 50-year-old lady with occipital headache with radiation to the temporal area bilaterally. Impression diagnosis includes occipital neuralgia, cervicogenic headache, tension headache. The patient may benefit from a trial of occipital nerve block bilaterally however I asked the patient to try Tylenol or ibuprofen for headache for the next week and if there is no improvement then we'll plan on doing this procedure. The patient did have this procedure before, years ago as she states and it did give her some pain relief. I thank you for the referral
== END | disposition home or self-care (01) ==
LOC: PNWHC3 09:01
PROVIDERS: ATTEND Anesthesiology
DX: M54.81 Occipital neuralgia (principal); G44.209 Tension-type headache, unspecified, not intractable; E78.5 Hyperlipidemia, unspecified; I10 Essential (primary) hypertension; G47.419 Narcolepsy without cataplexy; F32.9 Major depressive disorder, single episode, unspecified; Z88.2 Allergy status to sulfonamides; Z88.1 Allergy status to other antibiotic agents; Z88.8 Allergy status to other drugs, medicaments and biological substances; Z79.899 Other long term (current) drug therapy
CPT/HCPCS: 99211

== ENCOUNTER → 2020-07-16 | Outpatient (CLI) | payer MEDICARE, OTHER ==
[2020-07-16 21:10] LABS: Chol/HDL Ratio 3.95; LDL Cholesterol,Calculated 94.2 mg/dL (0.0-131.0); VLDL Calculation 20.8 mg/dL (5.00-40.00)
[2020-07-16 22:03] LABS: T4, Free (Free Thyroxine) 0.9 ng/dL (0.80-1.80)
== END | disposition home or self-care (01) ==
LOC: LABWHC1 11:32
PROVIDERS: ATTEND Internal Medicine Cardiovascular Disease
DX: E78.2 Mixed hyperlipidemia (principal); R41.89 Other symptoms and signs involving cognitive functions and awareness; Z79.899 Other long term (current) drug therapy
CPT/HCPCS: 36415; 80061; 82607; 84439; 84443; 84450; 84460

== ENCOUNTER 2020-08-02 23:12 | Emergency (ER) | payer MEDICARE, OTHER ==
[2020-08-02 23:23] VITALS: RESP 16; TEMP 97.9
--- NOTE | 2020-08-03 00:29 | XR ---
EXAMINATION TYPE: XR knee complete RT DATE OF EXAM: 08/02/2020 COMPARISON: NONE HISTORY: Knee pain TECHNIQUE: 3 views FINDINGS: I see no fracture nor dislocation. Joint spaces are normal. There is mild spurring on the a nterior patella. There is no sign of joint effusion. IMPRESSION: Negative right knee exam. No fracture. Mild spur formation on the patella.
--- NOTE | 2020-08-03 00:41 | ED ---
Extremity Problem HPI - General Chief complaint: Extremity Problem,Nontraumatic Stated complaint: RT knee and leg pain Time Seen by Provider: 08/02/20 23:40 Source: patient, RN notes reviewed Mode of arrival: wheelchair Limitations: no limitations - History of Present Illness Initial comments: This a 50-year-old female presents emergency Department with chief complaint of right knee pain. Patient states started last couple days states last 24 hours become excruciating. Patient states that she does not remember any injury. Denies any significant redness or discoloration. She states it is mildly swollen and states any touching or movement of her right knee increases her pain states pain is radiating up now towards her right hip but denies any back pain on the usual. Denies any bowel, bladder incontinence or retention. Denies any lower extremity paresthesias. - Related Data Home Medications Medication Instructions Recorded Confirmed Atorvastatin [Lipitor] 40 mg PO DAILY 03/24/20 04/14/20 Dextroamphetamine/Amphetamine 10 mg PO DAILY 03/24/20 04/14/20 [Adderall] Ergocalciferol (Vitamin D2) 1,250 mcg PO MO 03/24/20 04/14/20 [Vitamin D2 (50,000 Iu)] Lisinopril-Hctz 10-12.5 mg 1 tab PO DAILY 03/24/20 04/14/20 [Zestoretic 10-12.5] ARIPiprazole [Abilify] 2 mg PO DAILY 04/14/20 04/14/20 Previous Rx's Medication Instructions Recorded Pantoprazole [Protonix] 40 mg PO DAILY #30 tablet. 05/19/16 Ibuprofen [Motrin] 600 mg PO Q8HR PRN #20 tab 08/03/20 Allergies Allergy/AdvReac Type Severity Reaction Status Date / Time sulfamethoxazole AdvReac Nausea & Verified 08/02/20 23:20 [From Octra] Vomiting trimethoprim [From ] AdvReac Nausea & Verified 08/02/20 23:20 Vomiting Review of Systems ROS Statement: Those systems with pertinent positive or pertinent negative responses have been documented in the HPI. ROS Other: All systems not noted in ROS Statement are negative. 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 lap with lysis of adhesions. oophorectomy. ammy masectomy with reconstruction. COLONOSCOPY/EGD Past Anesthesia/Blood Transfusion Reactions: Previous Problems w/ Anesthesia, Motion Sickness Additional Past Anesthesia/Blood Transfusion Reaction / Comment(s): pt states she experienced some apnea post op Past Psychological History: Anxiety, Bipolar, Depression, PTSD Smoking Status: Never smoker Past Alcohol Use History: None Reported Past Drug Use History: None Reported - Past Family History Mother Family Medical History: Cancer Additional Family Medical History / Comment(s): of breast cancer at age 40 Father Family Medical History: Coronary Artery Disease (CAD), Myocardial Infarction ([place]) Additional Family Medical History / Comment(s): "hardening of arteries", " from cardiac arrest due to pancreatitis" General Exam Limitations: no limitations General appearance: alert, in no apparent distress Head exam: Present: atraumatic, normocephalic, normal inspection Eye exam: Present: normal appearance Neck exam: Present: normal inspection. Absent: tenderness, meningismus, lymphad enopathy Respiratory exam: Present: normal lung sounds bilaterally. Absent: respiratory distress, wheezes, rales, rhonchi, stridor Extremities exam: Present: other (Right knee there is mild swelling no erythema warmth pedal pulses are equal bilaterally no significant pedal edema patient reports pain with range of motion and palpation of the medial aspect.) Skin exam: Present: warm, dry, intact, normal color. Absent: rash Course Vital Signs 08/02/20 23:20 Temperature 97.9 F Pulse Rate 96 Respiratory 16 Rate Blood Pressure 147/85 O2 Sat by Pulse 97 Oximetry Medical Decision Making - Medical Decision Making 50-year-old female presented emergency department for any pain. Ultrasound was performed which was negative x-ray shows mild arthritic changes. Patient has mildly swollen knee with no extensive erythema changes patient is afebrile this may related to gout versus pseudogout possibility of some radicular symptoms that she has pain in her thigh. Patient will follow-up with orthopedics, strict return parameters were discussed. Patient provided pain control Disposition Clinical Impression: Right knee pain Disposition: HOME SELF-CARE Condition: Stable Instructions (If sedation given, give patient instructions): Knee Pain (ED), Pseudogout (ED), Gout (ED) Additional Instructions: Please return to the Emergency Department if symptoms worsen or any other concerns. Prescriptions: Ibuprofen [Motrin] 600 mg PO Q8HR PRN #20 tab PRN Reason: Pain Is patient prescribed a controlled substance at d/c from ED?: No Referrals: Marlena Mendez MD [Primary Care Provider] - 1-2 days Cesar Matthew DO [Doctor of Osteopathic Medicine] - 1-2 days Time of Disposition: 01:53
--- NOTE | 2020-08-03 01:01 | US ---
EXAMINATION TYPE: US venous doppler duplex LE RT DATE OF EXAM: 08/03/2020 12:43 AM COMPARISON: NONE CLINICAL HISTORY: pain. Pain. No hx of DVT. Patient does not take blood thinners. SIDE PERFORMED: Right TECHNIQUE: The lower extremity deep venous system is examined utilizing real time linear array sonog meggan with graded compression, doppler sonography and color-flow sonography. 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 No evidence of DVT in veins imaged at this time. IMPRESSION: No evidence of deep vein thrombosis in the right leg.
[2020-08-03] MEDS ORDERED: dexAMETHasone 2 MG TAB PO STA (01:51)
[2020-08-03] MEDS ORDERED: ACET/COD 300 MG/30 MG STARTER PACK 6 TAB BTL PO STA (01:53)
[2020-08-03 02:10] VITALS: BP 119/79; PULSE 72
== END 2020-08-03 02:10 | disposition home or self-care (01) ==
LOC: EC 23:12
DX: M25.561 Pain in right knee (principal); M79.89 Other specified soft tissue disorders; I10 Essential (primary) hypertension; E78.5 Hyperlipidemia, unspecified; F31.9 Bipolar disorder, unspecified; F41.9 Anxiety disorder, unspecified
CPT/HCPCS: 99284

== ENCOUNTER → 2020-09-09 | Outpatient (CLI) | payer MEDICARE, OTHER ==
--- NOTE | 2020-09-10 07:45 | SFUN ---
SLEEP CENTER FOLLOW UP NOTE DATE OF SERVICE: 09/09/2020 HISTORY OF PRESENT ILLNESS: This 50-year-old lady has been followed in Sleep Center for treatment of narcolepsy. Recently the patient increased her snoring and has awakenings from sleep with episodes of gasping for air. I review the results of previous sleep study which was done in March of 2017 and study showed at that time high apnea-hypopnea index in REM sleep. Patient is on treatment with Adderall 10 mg twice a day in with this regimen she feels better, [place] Sleepiness Scale today is although increased to 13. MEDICATIONS: Lipitor 40 mg once a day, lisinopril hydrochlorothiazide 10/12.5 mg once a day, Adderall 10 mg twice a day, Protonix 40 mg once a day, and vitamin D2 supplement once awake. PHYSICAL EXAM: GENERAL: male without distress. VITAL SIGNS: BP 119/80, HR 82, RR 15, height 5 feet 7 1/2 inches, weight 228.4 pounds, body mass index 35.1. The patient increased her weight since the previous sleep study, about 15 pounds. Temperature is 97.1. Oxygen saturation on room air 96%. HEENT: PERRLA, EOMI, evaluation of oropharynx showed tongue protrudes midline. Moderately low position of soft palate. NECK: Supple, no JVD. Thyroid is not palpable. LUNGS: Clear to percussion and to auscultation. Good air exchange. No wheezing or rhonchi. HEART: S1, S2 regular. No murmurs, gallops, or rubs. ABDOMEN: Obese, soft and nontender. Bowel sounds are present. No organomegaly appreciated. EXTREMITIES: No clubbing or cyanosis. HEALTH INFORMATION MANAGER: Awake, alert, and oriented X3. Cranial nerves 2 to 7 intact. There is no fasciculation or atrophy. noted. No focal deficits observed. IMPRESSION: 1. Possible narcolepsy. Mean sleep latency 6.8 minutes during MSLT but short time during the sleep study before. 2. Snoring, multiple awakenings from sleep, possible obstructive sleep apnea-hypopnea syndrome. 3. Hypertension. 4. Acid reflux. 5. Obesity. 6. Depression. 7. Anxiety. 8. History of bipolar disorder. 9. Status post total hysterectomy. 10.Status post bilateral mastectomy. PLAN: 1. Repeat polysomnogram for evaluation of patient's breathing during sleep. 2. Continue Adderall 10 mg twice a day. 3. Sleep hygiene with regular time in bed for at least 8 hours. 4. Daytime naps permitted. 5. No driving if feeling any sleepiness. Thank you much for allowing me to participate in the management of your patient. Sincerely, Peter Andre MD, PhD, FAASM Diplomat of [place] [employer] Sleep Medicine Board of [place] [employer] [facility] MMODL / IJN: [id number] /
== END ==
LOC: SLEEP 14:12
PROVIDERS: ATTEND Internal Medicine
DX: R06.83 Snoring (principal); I10 Essential (primary) hypertension; K21.9 Gastro-esophageal reflux disease without esophagitis; E66.9 Obesity, unspecified; F41.9 Anxiety disorder, unspecified; F31.9 Bipolar disorder, unspecified; Z90.710 Acquired absence of both cervix and uterus; Z90.13 Acquired absence of bilateral breasts and nipples; Z79.899 Other long term (current) drug therapy; Z68.35 Body mass index [BMI] 35.0-35.9, adult; Z88.1 Allergy status to other antibiotic agents

== ENCOUNTER 2020-10-28 20:52 | Observation (INO) | payer MEDICARE, OTHER ==
--- NOTE | 2020-10-28 21:14 | ED ---
Chest Pain HPI - General Chief Complaint: Chest Pain Stated Complaint: Dizziness,Left side pain Time Seen by Provider: 10/28/20 21:07 Source: patient Mode of arrival: ambulatory Limitations: no limitations - History of Present Illness Initial Comments: This patient is 50-year-old woman who complains of having some upper chest discomfort which was followed by a little bit of pain/numbness to the left upper extremity. MD Complaint: chest pain Onset/Timin -: hour(s) Onset: during rest Pain Location: left chest Pain Radiation: LUE Severity: moderate Quality: dull Consistency: constant Improves With: nothing Worsens With: nothing Treatments Prior to Arrival: none - Related Data Home Medications Medication Instructions Recorded Confirmed Atorvastatin [Lipitor] 40 mg PO DAILY 03/24/20 10/28/20 Dextroamphetamine/Amphetamine 10 mg PO BID@0900,1400 03/24/20 10/28/20 [Adderall] Ergocalciferol (Vitamin D2) 1,250 mcg PO MO 03/24/20 10/28/20 [Vitamin D2 (50,000 Iu)] Lisinopril-Hctz 10-12.5 mg 1 tab PO DAILY 03/24/20 10/28/20 [Zestoretic 10-12.5] Sertraline HCl [Zoloft] 100 mg PO DAILY 10/28/20 10/28/20 cloNIDine HCL [Catapres] 0.1 mg PO HS 10/28/20 10/28/20 Previous Rx's Medication Instructions Recorded Pantoprazole [Protonix] 40 mg PO DAILY #30 tablet. 05/19/16 Aspirin 81 mg PO DAILY #30 tab 10/29/20 Nitroglycerin Sl Tabs [Nitrostat] 0.4 mg SUBLINGUAL Q5M PRN #30 tab 10/29/20 Allergies Allergy/AdvReac Type Severity Reaction Status Date / Time sulfamethoxazole AdvReac Nausea & Verified 10/28/20 21:22 [From ] Vomiting trimethoprim [From ] AdvReac Nausea & Verified 10/28/20 21:22 Vomiting Review of Systems ROS Statement: Those systems with pertinent positive or pertinent negative responses have been documented in the HPI. ROS Other: All systems not noted in ROS Statement are negative. Constitutional: Denies: fever, chills, weakness Eyes: Denies: vision change Respiratory: Denies: cough, dyspnea Cardiovascular: Reports: as per HPI, chest pain. Denies: palpitations, dyspnea on exertion, orthopnea, edema Gastrointestinal: Denies: abdominal pain, nausea, vomiting Musculoskeletal: Denies: back pain Skin: Denies: rash Neurological: Denies: headache, weakness, numbness EKG Findings - EKG Results: EKG: interpreted by ERMD, sinus rhythm (81 bpm), normal axis, normal QRS - Blocks, [place], Hypertrophy, ST Abn: Repolarization changes or abnormalities: nonspecific abnormality, ST segment, and/or T wave Past Medical History Past Medical History: Hyperlipidemia, Hypertension Additional Past Medical History / Comment(s): has a type of Narcolepsy, 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 lap with lysis of adhesions. oophorectomy. ammy masectomy with reconstruction. COLONOSCOPY/EGD Past Anesthesia/Blood Transfusion Reactions: Previous Problems w/ Anesthesia, Motion Sickness Additional Past Anesthesia/Blood Transfusion Reaction / Comment(s): pt states she experienced some apnea post op Past Psychological History: Anxiety, Bipolar, Depression, PTSD Smoking Status: Never smoker Past Alcohol Use History: None Reported Past Drug Use History: None Reported - Past Family History Mother Family Medical History: Cancer Additional Family Medical History / Comment(s): of breast cancer at age 40 Father Family Medical History: Coronary Artery Disease (CAD), Myocardial Infarction ([place]) Additional Family Medical History / Comment(s): "hardening of arteries", " from cardiac arrest due to pancreatitis" General Exam Limitations: no limitations General appearance: alert, in no apparent distress Head exam: Present: atraumatic, normocephalic Eye exam: Present: normal appearance. Absent: scleral icterus, conjunctival injection Neck exam: Present: normal inspection, full ROM Respiratory exam: Present: normal lung sounds bilaterally. Absent: respiratory distress, wheezes, rales, rhonchi, stridor, chest wall tenderness Cardiovascular Exam: Present: regular rate, normal rhythm, normal heart sounds. Absent: systolic murmur, diastolic murmur, rubs, gallop GI/Abdominal exam: Present: soft. Absent: distended, tenderness, guarding, rebound, rigid, mass Extremities exam: Present: normal inspection, normal capillary refill. Absent: pedal edema, calf tenderness Back exam: Present: normal inspection. Absent: CVA tenderness (R), CVA tenderness (L) Neurological exam: Present: alert Skin exam: Present: warm, dry, intact, normal color. Absent: rash Course Vital Signs 10/28/20 10/28/20 10/28/20 20:54 21:07 23:38 Temperature 97.6 F Pulse Rate 79 75 73 Respiratory 20 18 18 Rate Blood Pressure 139/80 119/73 106/64 O2 Sat by Pulse 98 96 96 Oximetry Disposition Clinical Impression: Chest pain Disposition: ADMITTED IP TO THIS HOSP Condition: Stable Is patient prescribed a controlled substance at d/c from ED?: No
[2020-10-28] MEDS ORDERED: SODIUM CHLORIDE 0.9% 500 ML 500 ML IV STA (21:35)
--- NOTE | 2020-10-28 22:02 | XR ---
EXAMINATION TYPE: XR chest 2V DATE OF EXAM: 10/28/2020 COMPARISON: Chest radiograph 05/18/2016. HISTORY: Chest pain TECHNIQUE: Frontal and lateral views of the chest are obtained. FINDINGS: There is no focal air space opacity, pleural effusion, or pneumothorax seen. The cardiac silhouette size is within normal limits. The osseous structures are intact. IMPRESSION: No acute cardiopulmonary process.
[2020-10-28 22:23] LABS: Basophils # (A) 0.1 k/uL (0-0.2); Basophils % (A) 1 %; Eosinophils # (A) 0.3 k/uL (0-0.7); Eosinophils % (A) 4 %; HCT 39.3 % (34.0-46.0); HGB 13.2 gm/dL (11.4-16.0); Lymphocytes # (A) 2.8 k/uL (1.0-4.8); Lymphocytes % (A) 33 %; MCHC 33.7 g/dL (31.0-37.0); MCV 89.1 fL (80.0-100.0); Monocytes # (A) 0.4 k/uL (0-1.0); Monocytes % (A) 5 %; Neutrophils # (A) 4.8 k/uL (1.3-7.7); Neutrophils % (A) 57 %; Platelet Count 241 k/uL (150-450); RBC 4.41 m/uL (3.80-5.40); RDW 12.6 % (11.5-15.5); WBC 8.4 k/uL (3.8-10.6)
[2020-10-28 22:46] LABS: INR 0.9 (<1.2); Partial Thromboplastin Time 21.4 sec (22.0-30.0)
[2020-10-28 22:52] LABS: ALT 23 U/L (4-34); AST 26 U/L (14-36); African American GFR (CKD) >90 (>60 ml/min/1.73 sqM); Alkaline Phosphatase 71 U/L (38-126); Amylase 54 U/L (30-110); Anion Gap 9 mmol/L; Blood Urea Nitrogen 15 mg/dL (7-17); Calcium 9.6 mg/dL (8.4-10.2); Carbon Dioxide 24 mmol/L (22-30); Chloride 107 mmol/L (98-107); Glucose 141 mg/dL (74-99); Lipase 100 U/L (23-300); Magnesium 2.1 mg/dL (1.6-2.3); Non-African American GFR(CKD) >90 (>60 ml/min/1.73 sqM); Potassium 3.6 mmol/L (3.5-5.1); Sodium 140 mmol/L (137-145); Total Bilirubin 0.6 mg/dL (0.2-1.3); Total Protein 6.7 g/dL (6.3-8.2)
[2020-10-28] MEDS ORDERED: NITROGLYCERIN SL TABS 0.4 MG TAB SUBLINGUAL PRN (23:20)
[2020-10-29] MEDS ORDERED: PANTOPRAZOLE 40 MG TABLET PO SCH (07:30)
[2020-10-29 07:37] VITALS: BP 116/73; PULSE 57; RESP 16; TEMP 98.1
--- NOTE | 2020-10-29 08:46 | ECHOF ---
Referral Reason:cp MEASUREMENTS -------- HEIGHT: 170.2 cm WEIGHT: 102.1 kg BP: 116/73 RVIDd: 2.9 cm (< 3.3) IVSd: 1.2 cm (0.6 - 1.1) LVIDd: 4.0 cm (3.9 - 5.3) LVPWd: 1.0 cm (0.6 - 1.1) IVSs: 1.5 cm LVIDs: 2.9 cm LVPWs: 1.5 cm LA Diam: 3.3 cm (2.7 - 3.8) Ao Diam: 2.9 cm (2.0 - 3.7) AV Cusp: 1.6 cm (1.5 - 2.6) MV EXCURSION: 12.126 mm (> 18.000) MV EF SLOPE: 81 mm/s (70 - 150) EPSS: 0.6 cm MV E Thad: 0.74 m/s MV DecT: 217 ms MV A Thad: 0.78 m/s MV E/A Ratio: 0.95 FINDINGS -------- Sinus rhythm. This was a technically adequate study. The left ventricular size is normal. There is borderline concentric left ventricular hypertrophy. Overall left ventricular systolic function is normal with, an EF between 55 - 60 %. The right ventricle is normal in size. The left atrium is normal in size. The right atrial size is normal. Interatrial and interventricular septum intact. The aortic valve is trileaflet, and appears structurally normal. No aortic stenosis or regurgitation. The mitral valve is normal. Mild mitral regurgitation is present. The tricuspid valve appears structurally normal. Trace tricuspid regurgitation present. Unable to estimate RVSP due to inadequate TR jet spectral doppler profile. Trace/mild (physiologic) pulmonic regurgitation. The aortic root size is normal. Normal inferior vena cava with normal inspiratory collapse consistent with estimated right atrial pre ssure of 5 mmHg. There is no pericardial effusion. CONCLUSIONS -------- 1. There is borderline concentric left ventricular hypertrophy. 2. Overall left ventricular systolic function is normal with, an EF between 55 - 60 %. 3. The left atrium is normal in size. 4. The aortic valve is trileaflet, and appears structurally normal. No aortic stenosis or regurgitati on. 5. Mild mitral regurgitation is present. 6. Trace/mild (physiologic) pulmonic regurgitation. 7. There is no pericardial effusion. HEARING CARE PROFESSIONAL: Susu Ngo RDCS
[2020-10-29] MEDS ORDERED: SERTRALINE 100 MG TAB PO SCH (09:00)
[2020-10-29] MEDS ORDERED: ASPIRIN 325 MG TAB PO SCH (09:00)
[2020-10-29] MEDS ORDERED: LISINOPRIL-HCTZ 10-12.5 MG 1 EACH TAB PO SCH (09:00)
[2020-10-29] MEDS ORDERED: ATORVASTATIN 40 MG TAB PO SCH (09:00)
[2020-10-29] MEDS ORDERED: ASPIRIN 81 MG PO SCH (09:00)
--- NOTE | 2020-10-29 09:19 | CONS ---
CONSULTATION Mrs. Fox is a 50-year-old female with known history of hypertension who presented to the emergency room with symptoms of dizziness and chest and back discomfort. She was sitting at rest when she had a headache, felt dizzy, had neck discomfort with some numbness and tingling in the left hand. Subsequently she started to have discomfort going to the chest and to the back. The patient has a known history of cervical pain and bulging disc, according to her. She is feeling well at this time. She has no prior history of documented obstructive lung disease. She underwent a stress test in 2018 that revealed no evidence of inducible ischemia. She denies any PND, orthopnea or peripheral edema. She has mild dyspnea on exertion. She has no history of malignant arrhythmia. Her coronary risk factors are remarkable for hypertension and hyperlipidemia. She is a nonsmoker, nondiabetic. MEDICATIONS: Her medications at home include clonidine 0.1 mg at bedtime, sertraline, Adderall, Protonix, Zestoretic 10/12.5 mg daily, atorvastatin 40 mg daily and vitamin D. REVIEW OF SYSTEMS: RESPIRATORY SYSTEM: She has mild dyspnea on exertion. No recent wheezing or cough. GI SYSTEM: No recent GI bleeding. No peptic ulcer disease. SYSTEM: No dysuria or hematuria. NERVOUS SYSTEM: No history of stroke or seizure. PHYSICAL EXAMINATION: This patient is a 50-year-old female, alert, oriented, in no apparent distress. Blood pressure 116/70 with a heart rate in the 60s to 70s. HEAD: Normocephalic. EYES: Sclerae anicteric. NECK: Good carotid upstroke. No bruit. No jugular venous distention. LUNGS: Clear to auscultation. HEART: Regular rate and rhythm. S1, S2. No S3. Systolic murmur 1/6 heard at the left upper sternal border. No diastolic murmur. No rub. ABDOMEN: Soft, nontender. Positive bowel sounds. No organomegaly. EXTREMITIES: No edema. Intact distal pulses. LAB DATA: Lab data revealed troponin less than 0.012 for three samples, BUN and creatinine of 15 and 0.7, potassium 3.6, hemoglobin 13.2, white blood cell count 8.4. EKG revealed a sinus mechanism, rate of 81, normal axis and intervals with minor nonspecific ST-T wave changes. Chest x-ray shows no acute infiltrate. IMPRESSION: 1. Chest discomfort, atypical for ischemic heart disease. The arm numbness and the neck discomfort are most likely related to the cervical radiculopathy. 2. History of hypertension. 3. Hyperlipidemia. RECOMMENDATIONS: I would recommend to obtain an echocardiogram and a stress echocardiogram, and if there is no evidence of any significant abnormalities, then no further cardiac workup will be needed. Thank you for this consult. Will follow with you. MMODL / IJN: [id number] / BREANA
--- NOTE | 2020-10-29 11:58 | ECHOS ---
STRESS ECHOCARDIOGRAM DATE OF SERVICE: 10/29/20 INDICATIONS: Vertigo BASELINE HEART RATE: 76 BASELINE BLOOD PRESSURE: 129/83 MAXIMUM HEART RATE: 151 MAXIMUM BLOOD PRESSURE: 188/97 85% MPHR: 144 100% MPHR: 169 METS: 7.7 MAXIMUM STAGE REACHED: 3 TOTAL EXERCISE TIME: 6:33 CLINICAL INFORMATION: Baseline rhythm is sinus mechanism rate of 76, normal axis and intervals. Normal echocardiogram. Baseline blood pressure 129/83 mmHg. Patient exercised on Ramo protocol for 6 minute 33 seconds reaching peak rate 151 beats per minute which is equal to 89% maximum predicted heart rate. Peak blood pressure 128/57 mmHg. Stress for terminated secondary to fatigue. There was no chest pain. Electrocardiograph monitoring revealed no evidence of diagnostic ischemic ST deviation. FINDINGS: Baseline echocardiogram revealed normal wall motion. At peak exercise, there was normal wall motion augmentation with no hypokinesis or dyskinesis. CONCLUSION: 1. Average exercise tolerance with normal echocardiograph response to exercise. 2. Normal stress echocardiogram with no evidence of stress-induced ischemia. MMODL / IJN: [id number] /
--- NOTE | 2020-10-29 14:05 | P.HPIM ---
History of Present Illness H&P Date: 10/29/20 This is a pleasant 50-year-old female who had sudden onset dizziness along with numbness and tingling of the left hand radiating up arm and behind the shoulder blade and was brought to the emergency room by for further evaluation. Patient states she was sitting in the chair looking down at her phone and suddenly became dizzy and extremely uncomfortable and started having this left arm and hand tingling that radiated up the back left shoulder blade and upper neck. Patient denies any syncope or passing out. While driving to the emergency department patient states she felt nauseated with no vomiting and was flushed. Patient follows with Dr. Mendez in the outpatient setting along with Dr. Liu as her knifer up. Patient has a past medical history of hyperlipidemia and hypertension and was be RCA 1 positive and underwent elective double mastectomy, history of depression, and some form of narcolepsy. Chest x- ray done in the emergency department shows no acute cardiopulmonary process with no pleural effusion or pneumothorax noted. EKG was done showing normal sinus rhythm with a heart rate of 81 and QT/QTC is 402/466. Cardiology has been consulted and 2-D echo was ordered. Patient currently denies any chest pain or shortness of breath. Patient denies palpitations. Patient is currently nothing by mouth for cardiology evaluation and possible stress test. Review of Systems Constitutional: Denies chills, Denies fever Ears, nose, mouth and throat: Denies headache, Denies sore throat Cardiovascular: Reports chest pain, Reports shortness of breath Respiratory: Denies cough Gastrointestinal: Reports nausea Genitourinary: Denies dysuria, Denies hematuria Musculoskeletal: Reports arm numbness/tingling (Left arm and hand tingling prior to ED arrival) Integumentary: Denies pruritus, Denies rash Neurological: Reports weakness Psychiatric: Denies anxiety, Denies depression Endocrine: Denies fatigue, Denies weight change Past Medical History Past Medical History: Hyperlipidemia, Hypertension Additional Past Medical History / Comment(s): has a type of Narcolepsy, breast and ovarian preventive surgery prone carrier of crca1, depression History of Any Multi-Drug Resistant Organisms: None Reported Past Surgical History: Breast Surgery, Cholecystectomy, Hysterectomy Additional Past Surgical History / Comment(s): expl. lap with lysis of adhesions. oophorectomy. ammy masectomy with reconstruction. COLONOSCOPY/EGD Past Anesthesia/Blood Transfusion Reactions: Previous Problems w/ Anesthesia, Motion Sickness Additional Past Anesthesia/Blood Transfusion Reaction / Comment(s): pt states she experienced some apnea post op Past Psychological History: Anxiety, Bipolar, Depression, PTSD Additional Psychological History / Comment(s): currently no medications due to insurance issues. pt states she is stable at this time. she states that it has been a few months since she has had medications. she now has insurance and will be making appts to see a primary care and a psychiatrist Smoking Status: Never smoker Past Alcohol Use History: None Reported Past Drug Use History: None Reported - Past Family History Mother Family Medical History: Cancer Additional Family Medical History / Comment(s): of breast cancer at age 40 Father Family Medical History: Coronary Artery Disease (CAD), Myocardial Infarction ([place]) Additional Family Medical History / Comment(s): "hardening of arteries", " from cardiac arrest due to pancreatitis" Medications and Allergies Home Medications Medication Instructions Recorded Confirmed Type Pantoprazole [Protonix] 40 mg PO DAILY #30 tablet. 05/19/16 10/28/20 Rx Atorvastatin [Lipitor] 40 mg PO DAILY 03/24/20 10/28/20 History Dextroamphetamine/Amphetamine 10 mg PO BID@0900,1400 03/24/20 10/28/20 History [Adderall] Ergocalciferol (Vitamin D2) 1,250 mcg PO MO 03/24/20 10/28/20 History [Vitamin D2 (50,000 Iu)] Lisinopril-Hctz 10-12.5 mg 1 tab PO DAILY 03/24/20 10/28/20 History [Zestoretic 10-12.5] Sertraline HCl [Zoloft] 100 mg PO DAILY 10/28/20 10/28/20 History cloNIDine HCL [Catapres] 0.1 mg PO HS 10/28/20 10/28/20 History Aspirin 81 mg PO DAILY #30 tab 10/29/20 Rx Nitroglycerin Sl Tabs [Nitrostat] 0.4 mg SUBLINGUAL Q5M PRN #30 tab 10/29/20 Rx Allergies Allergy/AdvReac Type Severity Reaction Status Date / Time sulfamethoxazole AdvReac Nausea & Verified 10/28/20 21:22 [From ] Vomiting trimethoprim [From Septra] AdvReac Nausea & Verified 10/28/20 21:22 Vomiting Physical Exam Vitals: Vital Signs Temp Pulse Pulse Resp BP BP Pulse Ox 10/29/20 07:00 98.1 F 57 L 16 116/73 97 10/29/20 01:54 98.0 F 59 L 14 115/77 97 10/29/20 01:03 59 L 16 10/29/20 00:05 98.1 F 59 L 16 129/70 97 10/28/20 23:38 73 18 106/64 96 10/28/20 21:07 75 18 119/73 96 10/28/20 20:54 97.6 F 79 20 139/80 98 Intake and Output 10/28/20 10/29/20 10/29/20 22:59 06:59 14:59 Other: # Voids 3 Weight 102.058 kg 102.058 kg Gen: This is a 50-year-old female awake, alert and oriented 3, well-developed, well-nourished, obese. HEENT: Head is atraumatic, normocephalic. Pupils equal, round. Sclerae is anicteric. NECK: Supple. No JVD. No lymphadenopathy. No thyromegaly. LUNGS: Clear to auscultation. No wheezes or rhonchi. No intercostal retractions. HEART: Regular rate and rhythm. No murmur. ABDOMEN: Soft. Bowel sounds are present. No masses. No tenderness. EXTREMITIES: No pedal edema. No calf tenderness. NEUROLOGICAL: Patient is awake, alert and oriented x3. Cranial nerves 2 through 12 are grossly intact. Results CBC & Chem 7: 10/28/20 21:48 10/28/20 21:48 Labs: Abnormal Lab Results - Last 24 Hours (Table) 10/28/20 10/28/20 Range/Units 21:48 21:48 APTT 21.4 L (22.0-30.0) sec Glucose 141 H (74-99) mg/dL Thrombosis Risk Factor Assmnt - Choose All That Apply Any of the Below Risk Factors Present?: Yes Each Factor Represents 1 point: Age 41-60 years, Obesity (BMI >25) Other Risk Factors: No Other congenital or acquired thrombophilia - If yes, enter type in comment: No Thrombosis Risk Factor Assessment Total Risk Factor Score: 2 Thrombosis Risk Factor Assessment Level: Low Risk Assessment and Plan Assessment: Chest pain, ruled out acute coronary event Mild Shortness of breath during chest pain episode, resolved Episode of dizziness with no syncopal event and no LOC secondary to assessment #1 Left arm and hand tingling secondary to cervical radiculopathy, resolved Hypertension Hyperlipidemia Obesity with a BMI of 35.2 Depression GI prophylaxis DVT prophylaxis Full code Plan: Cardiology evaluated the patient and patient underwent 2-D echo showing LV systolic function is normal with an EF of 55-60% with mild mitral regurgitation present. Patient underwent stress test which was an average exercise tolerance with normal echocardiographic response to exercise with normal stress echo with no evidence of stress-induced ischemia. Labs within normal limits and patient denies chest pain. Recommend following up with her knifer up Dr. Liu along with primary care provider Dr. Mendez in the outpatient setting. Resume home medications and patient will likely be discharged today. Time with Patient: Greater than 30
[2020-10-29 17:08] LABS: Chol/HDL Ratio 3.84
[2020-10-29] MEDS ORDERED: cloNIDine HCL 0.1 MG TAB PO SCH (21:00)
--- NOTE | 2020-11-02 09:52 | P.DS ---
Providers Date of admission: 10/28/20 23:20 Expected date of discharge: 10/29/20 Attending physician: Amina Franz Consults: 10/28/20 23:20 Consult Physician Routine Consulting Provider: Maximus Campbell Consult Reason/Comments: chest pain Do you want consulting provider notified?: Yes Primary care physician: Marlena Mendez Hospital Course: Final diagnosis Chest pain, ruled out acute coronary event Mild Shortness of breath during chest pain episode, resolved Episode of dizziness with no syncopal event and no LOC secondary to assessment #1 Left arm and hand tingling secondary to cervical radiculopathy, resolved Hypertension Hyperlipidemia Obesity with a BMI of 35.2 Depression GI prophylaxis DVT prophylaxis Full code Discharge disposition Patient is being discharged in a stable condition with guarded prognosis to home. Patient will follow-up with Dr. Mendez in the outpatient setting upon discharge. Patient is to follow with cardiology Dr. Liu as scheduled. Total time taken is greater than 35 minutes. Hospital course This is a pleasant 50-year-old female who had sudden onset dizziness along with numbness and tingling of the left hand radiating up arm and behind the shoulder blade and was brought to the emergency room by for further evaluation. Patient states she was sitting in the chair looking down at her phone and suddenly became dizzy and extremely uncomfortable and started having this left arm and hand tingling that radiated up the back left shoulder blade and upper neck. Patient denies any syncope or passing out. While driving to the [facility] department patient states she felt nauseated with no vomiting and was flushed. Patient follows with Dr. Mendez in the outpatient setting along with Dr. Liu as her harness preparer. Patient has a past medical history of hyperlipidemia and hypertension and was be RCA 1 positive and underwent elective double mastectomy, history of depression, and some form of narcolepsy. Chest x- ray done in the emergency department shows no acute cardiopulmonary process with no pleural effusion or pneumothorax noted. EKG was done showing normal sinus rhythm with a heart rate of 81 and QT/QTC is 402/466. Cardiology has been consulted and 2-D echo was ordered. Patient currently denies any chest pain or shortness of breath. Patient denies palpitations. Patient is currently nothing by mouth for cardiology evaluation and possible stress test. 10/29/2020 Patient underwent stress test which was negative and echo showing borderline concentric left ventricular hypertrophy with overall LV systolic function is normal with an EF of 55-60% with some mild mitral regurgitation present. Patient normally follows with Dr. Alexa centeno in the outpatient setting and instructed to do so in the next 1-2 weeks. Patient was started on aspirin and continued on regular home medications. Patient also encouraged to follow-up with primary care provider on discharge. Currently no reports of chest pain, shortness of breath, or palpitations. Patient is afebrile. No reports of nausea or vomiting and patient is tolerating diet. Patient will be discharged home today. Gen: This is a 50-year-old female awake, alert and oriented 3, well-developed, well-nourished, obese. HEENT: Head is atraumatic, normocephalic. Pupils equal, round. Sclerae is anicteric. NECK: Supple. No JVD. No lymphadenopathy. No thyromegaly. LUNGS: Clear to auscultation. No wheezes or rhonchi. No intercostal retractions. HEART: Regular rate and rhythm. No murmur. ABDOMEN: Soft. Bowel sounds are present. No masses. No tenderness. EXTREMITIES: No pedal edema. No calf tenderness. NEUROLOGICAL: Patient is awake, alert and oriented x3. Cranial nerves 2 through 12 are grossly intact. Please refer to medication reconciliation sheet for a list of medications. Patient Condition at Discharge: Stable Plan - Discharge Summary Discharge Rx Participant: Yes New Discharge Prescriptions: New Aspirin 81 mg PO DAILY #30 tab Nitroglycerin Sl Tabs [Nitrostat] 0.4 mg SUBLINGUAL Q5M PRN #30 tab PRN Reason: Chest Pain Continue Pantoprazole [Protonix] 40 mg PO DAILY #30 tablet. Lisinopril-Hctz 10-12.5 mg [Zestoretic 10-12.5] 1 tab PO DAILY Dextroamphetamine/Amphetamine [Adderall] 10 mg PO BID@0900,1400 Atorvastatin [Lipitor] 40 mg PO DAILY Ergocalciferol (Vitamin D2) [Vitamin D2 (50,000 Iu)] 1,250 mcg PO MO Sertraline HCl [Zoloft] 100 mg PO DAILY cloNIDine HCL [Catapres] 0.1 mg PO HS Discharge Medication List Pantoprazole [Protonix] 40 mg PO DAILY #30 tablet. 04/14/17 [Rx] Atorvastatin [Lipitor] 40 mg PO DAILY 03/24/20 [History] Dextroamphetamine/Amphetamine [Adderall] 10 mg PO BID@0900,1400 03/24/20 [History] Ergocalciferol (Vitamin D2) [Vitamin D2 (50,000 Iu)] 1,250 mcg PO MO 03/24/20 [History] Lisinopril-Hctz 10-12.5 mg [Zestoretic 10-12.5] 1 tab PO DAILY 03/24/20 [History] Sertraline HCl [Zoloft] 100 mg PO DAILY 10/28/20 [History] cloNIDine HCL [Catapres] 0.1 mg PO HS 10/28/20 [History] Aspirin 81 mg PO DAILY #30 tab 10/29/20 [Rx] Nitroglycerin Sl Tabs [Nitrostat] 0.4 mg SUBLINGUAL Q5M PRN #30 tab 10/29/20 [Rx] Follow up Appointment(s)/Referral(s): Marlena Mendez MD [Primary Care Provider] - 1-2 days William Liu MD [STAFF PHYSICIAN] - 2 Weeks Patient Instructions/Handouts: Chest Pain (DC) Activity/Diet/Wound Care/Special Instructions: Activity Limited until follow-up Follow-up with primary care provider on discharge Follow-up with your harness preparer outpatient Continue current medications Continue heart healthy diet Discharge Disposition: HOME SELF-CARE
== END 2020-10-29 13:32 | disposition home or self-care (01) ==
LOC: EC 20:52 → 6NMEDSUR 23:20
PROVIDERS: ADMIT Hospitalist; ATTEND Hospitalist
DX: R07.89 Other chest pain (principal); R06.02 Shortness of breath; R42 Dizziness and giddiness; M54.12 Radiculopathy, cervical region; I10 Essential (primary) hypertension; E78.5 Hyperlipidemia, unspecified; E66.9 Obesity, unspecified; Z68.35 Body mass index [BMI] 35.0-35.9, adult; F31.9 Bipolar disorder, unspecified; F43.10 Post-traumatic stress disorder, unspecified; Z20.822 Contact with and (suspected) exposure to COVID-19; Z79.82 Long term (current) use of aspirin; Z79.899 Other long term (current) drug therapy; Z80.3 Family history of malignant neoplasm of breast; Z82.41 Family history of sudden cardiac death; Z82.49 Family history of ischemic heart disease and other diseases of the circulatory system; Z85.43 Personal history of malignant neoplasm of ovary; Z90.13 Acquired absence of bilateral breasts and nipples; Z90.710 Acquired absence of both cervix and uterus
CPT/HCPCS: 96360; 99285; 36415; 93005; 93306; 85379; 80061; 80053; 82150; 83690; 83735; 84484 ×2; 85025; 85610; 85730; 87635; 71046; G0378 ×2; C8930; Q9950; 93351

== ENCOUNTER → 2020-11-29 | Outpatient (CLI) | payer MEDICARE, OTHER ==
[2020-11-29 14:01] VITALS: BP 112/80; PULSE 84; RESP 18; TEMP 98.3; BMI 35.1
--- NOTE | 2020-12-16 19:23 | P.HPBAR ---
Bariatric H&P - History & Physicial H&P Date: 11/29/20 History & Physicial: Visit/CC: initial visit Patient initial contact: Initial weight: 104.78 kg Initial weight in pounds: 231.00 Height: 5 ft 8 in Initial BMI: 35.1 Last weight: Current weight: 104.78 kg Current weight in pounds: 231.00 Current BMI: 35.1 [place] body weight (based on NIH guidelines): 63.503 kg Excess body weight loss: 0.0% The patient is a 50 year-old F who presents for Bariatric Assessment. Patient presents today for presurgical consultation. She is interested in sleeve gastrectomy. She's had lifetime problems obesity. 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 lap with lysis of adhesions. oophorectomy. ammy masectomy with reconstruction. COLONOSCOPY/EGD Past Anesthesia/Blood Transfusion Reactions: Previous Problems w/ Anesthesia, Motion Sickness Additional Past Anesthesia/Blood Transfusion Reaction / Comm: pt states she experienced some apnea post op Past Psychological History: Anxiety, Bipolar, Depression, PTSD Additional Psychological History / Comment(s): currently no medications due to insurance issues. pt states she is stable at this time. she states that it has been a few months since she has had medications. she now has insurance and will be making appts to see a primary care and a psychiatrist Smoking Status: Never smoker Past Alcohol Use History: None Reported Past Drug Use History: None Reported - Past Family History Mother Family Medical History: Cancer Additional Family Medical History / Comment(s): of breast cancer at age 40 Father Family Medical History: Coronary Artery Disease (CAD), Myocardial Infarction ([place]) Additional Family Medical History / Comment(s): "hardening of arteries", " from cardiac arrest due to pancreatitis" Surgical - Exam Vital Signs Temp Pulse Resp BP 98.3 F 84 18 112/80 11/29/20 13:56 11/29/20 13:56 11/29/20 13:56 11/29/20 13:56 - General well developed, well nourished, no distress - Eyes PERRL - ENT normal pinna - Neck no masses - Respiratory normal expansion - Cardiovascular Rhythm: regular - Abdomen Abdomen: soft, non tender Bariatric Assessment & Plan Plan: Morbid obesity, BMI 35. Patient was scheduled for EGD. Bariatric Checklist Checklist: Plan: Checklist: EGD: 1. Hiatal hernia: 2. H. Pylori: HgbA1c: Vitamin D: Smoking: Never smoker Primary care physician referral: DR. JARAMILLO Psychiatry clearance: Cardiology clearance: Sleep study: Diet journal: VTE risk score: VTE risk level: Rehab needs at discharge:
== END ==
LOC: BARWHC3 13:29
PROVIDERS: ATTEND Surgery
DX: E66.01 Morbid (severe) obesity due to excess calories (principal); E78.5 Hyperlipidemia, unspecified; I10 Essential (primary) hypertension; F41.9 Anxiety disorder, unspecified; F31.9 Bipolar disorder, unspecified; F43.10 Post-traumatic stress disorder, unspecified; Z68.35 Body mass index [BMI] 35.0-35.9, adult; Z88.2 Allergy status to sulfonamides
CPT/HCPCS: 99203

== ENCOUNTER → 2020-12-06 | Outpatient (CLI) | payer MEDICARE, OTHER ==
[2020-12-06 20:30] LABS: HCT 41.9 % (37.2-46.3); HGB 13.9 g/dL (12.0-15.0); MCH 31.2 pg (27.0-32.0); MCHC 33.2 g/dL (32.0-37.0); MCV 94.2 fL (80.0-97.0); Mean Platelet Volume 10.8 fL (9.5-12.2); Platelet Count 260 X 10*3/uL (140-440); RBC 4.45 X 10*6/uL (4.10-5.20); RDW 12.5 % (11.5-14.5); WBC 6.21 X 10*3/uL (4.50-10.00)
[2020-12-06 21:30] LABS: African American GFR (CKD) 88.8 (60.0-200.0); Albumin 4.7 g/dL (3.8-4.9); Albumin/Globulin Ratio 1.89 (1.60-3.17); BUN/Creat Ratio 17.6 Ratio (12.00-20.00); Blood Urea Nitrogen 15.4 mg/dL (9.0-27.0); Calcium 9.8 mg/dL (8.7-10.3); Carbon Dioxide 23.9 mmol/L (21.6-31.8); Folate, Serum 10.8 ng/mL (4.40-31.00); Globulin 2.5 g/dL (1.6-3.3); Non-African American GFR(CKD) 76.6 (60.0-200.0); Potassium 3.8 mmol/L (3.5-5.5); Total Bilirubin 0.6 mg/dL (0.30-1.20); Total Protein 7.1 g/dL (6.2-8.2)
== END | disposition home or self-care (01) ==
LOC: LABWHC1 12:28
PROVIDERS: ATTEND Surgery
DX: E55.9 Vitamin D deficiency, unspecified (principal); E66.01 Morbid (severe) obesity due to excess calories
CPT/HCPCS: 36415; 80053; 82306; 82607; 82746; 83036; 84425; 85027

== ENCOUNTER → 2020-12-27 | Outpatient (CLI) | payer MEDICARE, OTHER ==
[2020-12-27 22:33] LABS: Basophils # (A) 0.04 X 10*3/uL (0.00-0.10); Basophils % (A) 0.5 %; Eosinophils # (A) 0.24 X 10*3/uL (0.04-0.35); Eosinophils % (A) 3.3 %; HCT 42.3 % (37.2-46.3); HGB 14.4 g/dL (12.0-15.0); Lymphocytes # (A) 2.84 X 10*3/uL (0.90-5.00); Lymphocytes % (A) 38.9 %; MCV 91.2 fL (80.0-97.0); Mean Platelet Volume 11.1 fL (9.5-12.2); Monocytes # (A) 0.39 X 10*3/uL (0.20-1.00); Monocytes % (A) 5.3 %; Neutrophils # (A) 3.78 X 10*3/uL (1.80-7.70); Neutrophils % (A) 51.9 %; Platelet Count 242 X 10*3/uL (140-440); RBC 4.64 X 10*6/uL (4.10-5.20); RDW 12.7 % (11.5-14.5)
[2020-12-28 00:51] LABS: ALT 32 U/L (8-44); AST 24 U/L (13-35); African American GFR (CKD) 102.3 (60.0-200.0); Albumin 4.7 g/dL (3.8-4.9); Albumin/Globulin Ratio 1.75 (1.60-3.17); Alkaline Phosphatase 85 U/L (41-126); BUN/Creat Ratio 16.32 Ratio (12.00-20.00); Blood Urea Nitrogen 12.7 mg/dL (9.0-27.0); Calcium 9.9 mg/dL (8.7-10.3); Carbon Dioxide 21.9 mmol/L (21.6-31.8); Chloride 103 mmol/L (96-109); Chol/HDL Ratio 3.63 Ratio; Globulin 2.7 g/dL (1.6-3.3); Glucose 85 mg/dL (70-110); LDL Cholesterol,Calculated 96.6 mg/dL (0.0-131.0); Non-African American GFR(CKD) 88.3 (60.0-200.0); Potassium 3.9 mmol/L (3.5-5.5); Sodium 141 mmol/L (135-145); Total Protein 7.4 g/dL (6.2-8.2)
== END | disposition home or self-care (01) ==
LOC: LABWHC1 14:00
PROVIDERS: ATTEND Psychiatry & Neurology Psychiatry
DX: Z79.899 Other long term (current) drug therapy (principal)
CPT/HCPCS: 36415; 80053; 80061; 82306; 83036; 84439; 85025

== ENCOUNTER 2021-01-10 09:35 | Day surgery (SDC) | payer MEDICARE, OTHER ==
[2021-01-06 12:43] VITALS: BMI 35.2
[~2021-01-10 09:35] MED LIST: LACTATED RINGERS 1,000 ML IV SCH
[2021-01-10] MEDS ORDERED: LACTATED RINGERS 1,000 ML IV ONE (10:08)
[2021-01-10 10:16] VITALS: TEMP 97.3
[2021-01-10] MEDS ORDERED: PROPOFOL 10 MG/ML 20 ML VIAL IV ONE (10:56)
[2021-01-10] MEDS ORDERED: LIDOCAINE 1% INJ 10MG/ML (20 ML MDV) ONE (10:56)
--- NOTE | 2021-01-10 10:59 | P.GSHP ---
History of Present Illness H&P Date: 01/10/21 Chief Complaint: GERD, morbid obesity This is a 50-year-old female who presents today for EGD. She is undergoing workup for sleeve gastrectomy. Her BMI is 36. She's had complaints of GERD. Past Medical History Past Medical History: Hyperlipidemia, Hypertension, Osteoarthritis (OA) Additional Past Medical History / Comment(s): Takes adderall for a type of Narcolepsy, breast and ovarian ca prone carrier of brca1., buldging discs, hx of gout right knee. History of Any Multi-Drug Resistant Organisms: None Reported Past Surgical History: Breast Surgery, Cholecystectomy, Hysterectomy Additional Past Surgical History / Comment(s): expl. lap with lysis of adhesions. oophorectomy. ammy masectomy with reconstruction (preventative). COLONOSCOPY/EGD Past Anesthesia/Blood Transfusion Reactions: Previous Problems w/ Anesthesia, Motion Sickness Additional Past Anesthesia/Blood Transfusion Reaction / Comment(s): apnea post op Past Psychological History: Anxiety, Bipolar, Depression, PTSD Additional Psychological History / Comment(s): . Smoking Status: Never smoker Past Alcohol Use History: None Reported Past Drug Use History: None Reported - Past Family History Mother Family Medical History: Cancer Additional Family Medical History / Comment(s): of breast cancer at age 40 Father Family Medical History: Coronary Artery Disease (CAD), Myocardial Infarction ([place]) Additional Family Medical History / Comment(s): "hardening of arteries", " from cardiac arrest due to pancreatitis" Sister(s) Family Medical History: Cancer Additional Family Medical History / Comment(s): 1 sister=breast cancer and melanoma. 2nd sister=multiple myeloma Medications and Allergies Home Medications Medication Instructions Recorded Confirmed Type Pantoprazole [Protonix] 40 mg PO DAILY #30 tablet. 05/19/16 01/06/21 Rx Atorvastatin [Lipitor] 40 mg PO DAILY 03/24/20 01/06/21 History Dextroamphetamine/Amphetamine 10 mg PO BID 03/24/20 01/06/21 History [Adderall] Ergocalciferol (Vitamin D2) 1,250 mcg PO WEEKLY 03/24/20 01/06/21 History [Vitamin D2 (50,000 Iu)] Lisinopril-Hctz 10-12.5 mg 1 tab PO DAILY 03/24/20 01/06/21 History [Zestoretic 10-12.5] Sertraline HCl [Zoloft] 100 mg PO DAILY 10/28/20 01/06/21 History cloNIDine HCL [Catapres] 0.1 mg PO HS 10/28/20 01/06/21 History Allergies Allergy/AdvReac Type Severity Reaction Status Date / Time sulfamethoxazole AdvReac Nausea & Verified 01/06/21 12:19 [From ] Vomiting trimethoprim [From ] AdvReac Nausea & Verified 01/06/21 12:19 Vomiting Surgical - Exam Vital Signs Temp Pulse Resp BP Pulse Ox 97.3 F L 78 18 137/60 98 01/10/21 10:15 01/10/21 10:15 01/10/21 10:15 01/10/21 10:15 01/10/21 10:15 - General well developed, well nourished, no distress - Eyes PERRL - ENT normal pinna - Neck no masses - Respiratory normal expansion - Cardiovascular Rhythm: regular - Abdomen Abdomen: soft, non tender Assessment and Plan Assessment: GERD, received we'll perform EGD.
--- NOTE | 2021-01-10 11:07 | P.OP ---
Date of Procedure: 01/10/21 Preoperative Diagnosis: GERD Mild obesity Postoperative Diagnosis: Gastritis Procedure(s) Performed: EGD Anesthesia: MAC Surgeon: Dean Ramirez Pathology: other (Antrum) Condition: stable Disposition: PACU Description of Procedure: The patient's placed on the endoscopy table in the lateral position. She received IV sedation. The gastroscope placed oropharynx passed in the esophagus and stomach. The scope was then placed through the pylorus. The first and second portion duodenum appeared normal. Scope summer back the antrum was mildly inflamed. A biopsies performed. Scope was then retroflexed and the remainder of the stomach appeared normal. There was a small hiatal hernia. The GE junction was at 40 cm. The distal esophagus appeared normal. The proximal esophagus appeared normal. Scope withdrawn for patient.
[2021-01-10 11:33] VITALS: BP 122/77; PULSE 89; RESP 18
== END 2021-01-10 11:55 | disposition home or self-care (01) ==
LOC: ORWHC2ENDO 09:35
PROVIDERS: ATTEND Surgery
DX: K29.70 Gastritis, unspecified, without bleeding (principal)
CPT/HCPCS: 43239; 88305; J2001; J2704

== ENCOUNTER → 2021-01-24 | Outpatient (CLI) | payer MEDICARE, OTHER ==
[2021-01-24 14:48] VITALS: BP 115/80; PULSE 77; RESP 18; TEMP 98.2; BMI 35.6
--- NOTE | 2021-01-24 16:31 | P.HPBAR ---
Bariatric H&P - History & Physicial H&P Date: 01/24/21 History & Physicial: Visit/CC: follow up / presurgical visit Patient initial contact: Initial weight: 104.78 kg Initial weight in pounds: 231.00 Height: 5 ft 8 in Initial BMI: 35.1 Last weight: Current weight: 106.141 kg Current weight in pounds: 234.00 Current BMI: 35.6 [place] body weight (based on NIH guidelines): 63.503 kg Excess body weight loss: The patient is a 50 year-old F who presents for Bariatric Assessment. Patient presents today for presurgical consultation. She underwent recent EGD. She is morbidly obese. Her BMI is 36. 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 lap with lysis of adhesions. oophorectomy. ammy masectomy with reconstruction. COLONOSCOPY/EGD Past Anesthesia/Blood Transfusion Reactions: Previous Problems w/ Anesthesia, Motion Sickness Additional Past Anesthesia/Blood Transfusion Reaction / Comm: pt states she experienced some apnea post op Past Psychological History: Anxiety, Bipolar, Depression, PTSD Additional Psychological History / Comment(s): currently no medications due to insurance issues. pt states she is stable at this time. she states that it has been a few months since she has had medications. she now has insurance and will be making appts to see a primary care and a psychiatrist Smoking Status: Never smoker Past Alcohol Use History: None Reported Past Drug Use History: None Reported - Past Family History Mother Family Medical History: Cancer Additional Family Medical History / Comment(s): of breast cancer at age 40 Father Family Medical History: Coronary Artery Disease (CAD), Myocardial Infarction ([place]) Additional Family Medical History / Comment(s): "hardening of arteries", " from cardiac arrest due to pancreatitis" Sister(s) Family Medical History: Cancer Additional Family Medical History / Comment(s): 1 sister=breast cancer and melanoma. 2nd sister=multiple myeloma Surgical - Exam Vital Signs Temp Pulse Resp BP 98.2 F 77 18 115/80 01/24/21 14:43 01/24/21 14:43 01/24/21 14:43 01/24/21 14:43 - General well developed, well nourished, no distress - Eyes PERRL - ENT normal pinna - Neck no masses - Respiratory normal expansion - Cardiovascular Rhythm: regular - Abdomen Abdomen: soft, non tender Bariatric Assessment & Plan Plan: Morbid obesity. Patient has an excellent understanding of sleeve gastrectomy. She'll be scheduled once her insurance authorization requirements have been met. Bariatric Checklist Checklist: Plan: Checklist: EGD: 1. Hiatal hernia: 2. H. Pylori: HgbA1c: Vitamin D: Smoking: Never smoker Primary care physician referral: DR. JARAMILLO Psychiatry clearance: Cardiology clearance: Sleep study: Diet journal: VTE risk score: VTE risk level: Rehab needs at discharge:
== END ==
LOC: BARWHC3 14:01
PROVIDERS: ATTEND Surgery
DX: E66.01 Morbid (severe) obesity due to excess calories (principal); E78.5 Hyperlipidemia, unspecified; I10 Essential (primary) hypertension; F41.9 Anxiety disorder, unspecified; F31.9 Bipolar disorder, unspecified; Z68.35 Body mass index [BMI] 35.0-35.9, adult; Z79.899 Other long term (current) drug therapy; Z88.2 Allergy status to sulfonamides
CPT/HCPCS: 99211

== ENCOUNTER → 2021-01-27 | Outpatient (CLI) | payer MEDICARE, OTHER ==
--- NOTE | 2021-01-27 20:28 | SFUN ---
SLEEP CENTER FOLLOW UP NOTE DATE OF SERVICE: 01/27/2021 This 50-year-old lady has been followed in Sleep Center for treatment of narcolepsy. She is also her to discuss results of recent sleep studies for obstructive sleep apnea and following plan. Recently the patient had a polysomnogram which showed abnormalities of respiration during the sleep, 10.2 times per hour, with oxygen desaturation to 81.7%. Subsequently patient was started on treatment with CPAP, and with CPAP she sleeps better during the night and she feels better during the day. She continues to be on Adderall 10 mg twice a day for narcolepsy. Today her Leblanc Sleepiness Scale is 3, which is absolutely normal. I checked the reading from her new [employer] machine. Usage is 100% of nights and 97% of the time for more than 4 hours, average 7 hours 31 minutes. Pressure is in the range between 5 and 11 cm of water CPAP, average pressure 10.2 cm of water. Leak 95% of the time 2.1 only, with maximal 74.9, but probably very severe. Apnea-hypopnea index is 2.5, which is normal. MEDICATIONS: 1. Adderall 10 mg twice a day. 2. Lipitor 40 mg once a day. 3. Lisinopril/hydrochlorothiazide 10/12.5 mg once a day. 4. Protonix 40 mg once a day. 5. Vitamin D2 supplement. PHYSICAL EXAMINATION: GENERAL: Pleasant patient in no distress. VITAL SIGNS: BP 130/84, HR 79, RR 16, weight 234.2, temperature 97.1, oxygen saturation at room air 98%. HEENT: PERRLA, EOMI, evaluation of oropharynx showed tongue protrudes midline. Moderately low position of soft palate. NECK: Supple, no JVD. Thyroid is not palpable. LUNGS: Clear to percussion and to auscultation. Good air exchange. No wheezing or rhonchi. HEART: S1, S2 regular. No murmurs, gallops, or rubs. ABDOMEN: Obese. EXTREMITIES: No clubbing or cyanosis. SPINNER BOX: Awake, alert, and oriented X3. Cranial nerves 2 to 7 intact. There is no fasciculation or atrophy. noted. No focal deficits observed. IMPRESSION: 1. Obstructive sleep apnea-hypopnea syndrome. Patient demonstrated 100% compliance with treatment, benefitting from treatment. Normal respiration on CPAP. 2. Narcolepsy. With Adderall 10 mg twice a day, the patient's alertness is under full control. 3. Hypertension. 4. Acid reflux. 5. Obesity. 6. Depression. 7. Anxiety. 8. History of bipolar disorder. 9. Status post total hysterectomy. 10.Status post bilateral mastectomy. PLAN: 1. Continue Adderall 10 mg twice a day. 2. Patient will continue to use PAP equipment every night for the whole night. 3. Sleep hygiene with regular time in bed for at least 7-1/2 to 8 hours. 4. Precautions related to driving. No driving if feeling sleepiness. 5. I will maintain all necessary prescription for PAP supplies including mask, tube, filters. 6. Watching weight. 7. Follow-up visit in 6 months or earlier if patient has any problems. Thank you very much for allowing me to participate in the management of your patient. Sincerely, Peter Andre MD, PhD, FAASM Diplomat of [employer] Sleep Medicine Board of [employer] [facility] Carmi MMMICHAELL / JEWELLN: [id number] /
== END ==
LOC: SLEEP 13:41
PROVIDERS: ATTEND Internal Medicine
DX: G47.33 Obstructive sleep apnea (adult) (pediatric) (principal); I10 Essential (primary) hypertension; E66.9 Obesity, unspecified; K21.9 Gastro-esophageal reflux disease without esophagitis; F41.9 Anxiety disorder, unspecified; F31.9 Bipolar disorder, unspecified; Z90.710 Acquired absence of both cervix and uterus; Z90.13 Acquired absence of bilateral breasts and nipples; Z88.2 Allergy status to sulfonamides; Z99.89 Dependence on other enabling machines and devices; Z79.899 Other long term (current) drug therapy

== ENCOUNTER → 2021-06-27 | Outpatient (CLI) | payer MEDICARE, OTHER ==
[2021-06-27 11:15] VITALS: BMI 36.5
== END ==
LOC: BARWHC3 08:47
PROVIDERS: ATTEND Surgery
DX: E66.01 Morbid (severe) obesity due to excess calories (principal); Z71.3 Dietary counseling and surveillance
CPT/HCPCS: 97804

== ENCOUNTER → 2021-07-25 | Outpatient (CLI) | payer MEDICARE, OTHER ==
[2021-07-25 14:03] VITALS: BP 123/95; PULSE 94; RESP 12; TEMP 98.2; BMI 78.7
--- NOTE | 2021-07-25 14:58 | P.HPBAR ---
Bariatric H&P - History & Physicial H&P Date: 07/25/21 History & Physicial: Visit/CC: pre surgical Patient initial contact: Initial weight: 104.78 kg Initial weight in pounds: 231.00 Height: 5 ft 8 in Initial BMI: 35.1 Last weight: Current weight: 235 kg Current weight in pounds: 518.09 Current BMI: 78.7 [place] body weight (based on NIH guidelines): 63.503 kg Excess body weight loss: The patient is a 51 year-old F who presents for Bariatric Assessment. Patient presents today for presurgical consultation. She is scheduled for left periscopic sleeve gastrectomy suite. Patient is morbidly obese. BMI is over 40. 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 lap with lysis of adhesions. oophorectomy. ammy masectomy with reconstruction. COLONOSCOPY/EGD Past Anesthesia/Blood Transfusion Reactions: Previous Problems w/ Anesthesia, Motion Sickness Additional Past Anesthesia/Blood Transfusion Reaction / Comm: pt states she experienced some apnea post op Past Psychological History: Anxiety, Bipolar, Depression, PTSD Additional Psychological History / Comment(s): currently no medications due to insurance issues. pt states she is stable at this time. she states that it has been a few months since she has had medications. she now has insurance and will be making appts to see a primary care and a psychiatrist Smoking Status: Never smoker Past Alcohol Use History: None Reported Past Drug Use History: None Reported - Past Family History Mother Family Medical History: Cancer Additional Family Medical History / Comment(s): of breast cancer at age 40 Father Family Medical History: Coronary Artery Disease (CAD), Myocardial Infarction ([place]) Additional Family Medical History / Comment(s): "hardening of arteries", " from cardiac arrest due to pancreatitis" Sister(s) Family Medical History: Cancer Additional Family Medical History / Comment(s): 1 sister=breast cancer and melanoma. 2nd sister=multiple myeloma Surgical - Exam Vital Signs Temp Pulse Resp BP 98.2 F 94 12 123/95 07/25/21 13:57 07/25/21 13:57 07/25/21 13:57 07/25/21 13:57 - General well developed, well nourished, no distress - Eyes PERRL - Abdomen Abdomen: soft, non tender Bariatric Assessment & Plan Plan: Morbid obesity. Patient was scheduled for sleeve gastrectomy next week. Her questions were answered in the office today. Bariatric Checklist Checklist: Plan: Checklist: EGD: 1. Hiatal hernia: 2. H. Pylori: HgbA1c: Vitamin D: Smoking: Never smoker Primary care physician referral: DR. JARAMILLO Psychiatry clearance: Cardiology clearance: Sleep study: Diet journal: VTE risk score: VTE risk level: Rehab needs at discharge:
[2021-07-25 18:42] LABS: African American GFR (CKD) 98.2 (60.0-200.0); Albumin 4.8 g/dL (3.8-4.9); Anion Gap 11.9 mmol/L (10.00-18.00); BUN/Creat Ratio 17.88 Ratio (12.00-20.00); Blood Urea Nitrogen 14.3 mg/dL (9.0-27.0); Calcium 9.8 mg/dL (8.7-10.3); Carbon Dioxide 25.1 mmol/L (20.0-27.5); Globulin 2.4 g/dL (1.6-3.3); Non-African American GFR(CKD) 84.8 (60.0-200.0); Potassium 4.1 mmol/L (3.5-5.5); Total Bilirubin 0.7 mg/dL (0.30-1.20); Total Protein 7.2 g/dL (6.2-8.2)
[2021-07-25 18:56] LABS: Basophils # (A) 0.04 X 10*3/uL (0.00-0.10); Basophils % (A) 0.6 %; Eosinophils # (A) 0.24 X 10*3/uL (0.04-0.35); Eosinophils % (A) 3.9 %; HCT 40.4 % (37.2-46.3); HGB 13.2 g/dL (12.0-15.0); Immature Grans, Automated 0.2 %; Lymphocytes # (A) 2.57 X 10*3/uL (0.90-5.00); Lymphocytes % (A) 41.4 %; MCH 29.7 pg (27.0-32.0); MCHC 32.7 g/dL (32.0-37.0); Mean Platelet Volume 11.1 fL (9.5-12.2); Monocytes # (A) 0.41 X 10*3/uL (0.20-1.00); Monocytes % (A) 6.6 %; NRBC Per 100 WBC 0 /100 WBCS (0.0-0.0); Neutrophils # (A) 2.94 X 10*3/uL (1.80-7.70); Neutrophils % (A) 47.3 %; Platelet Count 279 X 10*3/uL (140-440); RBC 4.44 X 10*6/uL (4.10-5.20); RDW 12.8 % (11.5-14.5); WBC 6.21 X 10*3/uL (4.50-10.00)
== END ==
LOC: BARWHC3 13:53
PROVIDERS: ATTEND Surgery
DX: Z01.818 Encounter for other preprocedural examination (principal); E66.01 Morbid (severe) obesity due to excess calories; E78.5 Hyperlipidemia, unspecified; I10 Essential (primary) hypertension; F31.9 Bipolar disorder, unspecified; Z79.899 Other long term (current) drug therapy; F41.9 Anxiety disorder, unspecified; Z88.2 Allergy status to sulfonamides
CPT/HCPCS: 80053; 85025; G0463; 99211

== ENCOUNTER → 2022-01-26 | Outpatient (CLI) | payer MEDICARE, OTHER ==
--- NOTE | 2022-01-26 14:45 | P.PN ---
Subjective DATE: 01/26/2022 FOLLOW UP VISIT. Patient with obstructive sleep apnea hypopnea syndrome and narcolepsy return to sleep center for follow-up visit. Information from previous visit have been reviewed. Patient is using PAP equipment every night for the whole night, getting PAP supplies in time. The patient does not have significant problems with the mask, PAP unit and humidification. Patient is on treatment with Adderall 10 mg twice a day. With medication she able to control sure alertness during the day. [place] sleepiness scale is 6, which is normal. I checked information from PAP unit and discussed it with the patient. PAP unit pressure 5-11, average 9.8 cm H2O. Usage is 100 % for more then 4 hours, average 9.5 hours per night. Leak is 3.2 l/m, which is in acceptable range. Apnea Hypopnea Index is 2.3, which is normal. MEDICATIONS:1. Adderall 10 mg twice a day 2. Lipitor 40 mg once a day 3. Lisinopril/hydrochlorothiazide 10/12.5 mg once a day 4. Protonix 40 mg once a day During physical exam: GENERAL: A pleasant patient without any distress. VITAL SIGNS: BP 148/85, HR 84, RR 16, weight 227, temperature 97.9, oxygen saturation at room air 98 % . HEENT: PERRLA, EOMI.low position of soft palate, [place] 3 . NECK: Supple. No JVD. LUNGS: Clear to percussion and to auscultation. Good air exchange. No wheezing or rhonchi. HEART: S1, S2 regular. ABDOMEN: Soft and nontender. Slightly obese EXTREMITIES: No clubbing or cyanosis. CHAIRMAN & CEO: Awake, alert, and oriented x3. No focal deficit. Impressions: 1. Obstructive sleep apnea-hypopnea syndrome. Patient demonstrated great compliance with treatment, benefiting from treatment. 2. Narcolepsy. 3. Obesity body mass index 35. 4. Hypertension. 5. Depression. 6. Anxiety. 7. History of bipolar disorder. 8. Status post total hysterectomy. 9. Status post bilateral mastectomy. Plan: 1. Continue using PAP equipment every night for the whole night. 2. To continue Adderall 10 mg twice a day. 3. PAP unit should stay lower then position of the head. 4. Advised patient to remove all remaining water from humidifier canister daily and make it dry after each usage. Refill canister with fresh distilled water before each usage. 5. Sleep hygiene with regular time in bed for at least 8 hours. 6. Precautions related to driving. No driving if feel any sleepiness. 7. I will maintain prescription for PAP supplies including mask, tube, filters. 8. Follow up visit in 6 months or earlier if patient has any problems. 9. Watching weight. Thank you very much for allowing me to participate in the management of your patient. Peter Andre MD, PhD, FAASM. Diplomat of [place] [employer], Sleep Medicine Board by [employer] [facility] [employer] [place]
== END ==
LOC: SLEEP 14:13
PROVIDERS: ATTEND Internal Medicine
DX: G47.33 Obstructive sleep apnea (adult) (pediatric) (principal); G47.419 Narcolepsy without cataplexy; E66.9 Obesity, unspecified; Z68.35 Body mass index [BMI] 35.0-35.9, adult; I10 Essential (primary) hypertension; F41.9 Anxiety disorder, unspecified; Z90.13 Acquired absence of bilateral breasts and nipples; Z90.710 Acquired absence of both cervix and uterus; F31.9 Bipolar disorder, unspecified; Z99.89 Dependence on other enabling machines and devices; Z79.899 Other long term (current) drug therapy; Z88.2 Allergy status to sulfonamides
CPT/HCPCS: 99212

== ENCOUNTER 2022-11-17 21:14 | Emergency (ER) | payer MEDICARE, OTHER ==
[2022-11-17] MEDS ORDERED: SODIUM CHLORIDE 0.9% 1,000 ML IV STA ×2 (21:28→23:01)
[2022-11-17] MEDS ORDERED: METOCLOPRAMIDE 5 MG/ML 2 ML VIAL IVP STA (21:28)
[2022-11-17] MEDS ORDERED: PANTOPRAZOLE 40 MG/10 ML VIAL IVP STA (21:28)
[2022-11-17] MEDS ORDERED: MAG HYDROX/AL HYDROX/SIMETH 30 ML, HYOSCYAMINE ELIXIR 10 ML, LIDOCAINE 2% GLYDO JELLY 1... PO STA ×3 (21:30)
[2022-11-17] MEDS ORDERED: MECLIZINE 12.5 MG TAB PO STA (21:30)
[2022-11-17 21:34] VITALS: TEMP 97.5
--- NOTE | 2022-11-17 22:15 | ED ---
General Adult HPI - General Chief complaint: Abdominal Pain Stated complaint: dizzy, nausea, vomiting Time Seen by Provider: 11/17/22 21:17 Source: patient, EMS, RN notes reviewed, old records reviewed Mode of arrival: EMS - History of Present Illness Initial comments: Patient is a 52-year-old female with past medical history remarkable for cholecystectomy, hyperlipidemia, hypertension, narcolepsy. Presents to emergency Department complaining of sudden onset epigastric and right lower quadrant abdominal pain with radiation to the back with associated nausea and vomiting. States she felt lightheaded as well with this. He had a sudden episode of numbness in her hands and feet that was equal which resolved as well. She states she is dizzy but when she describes that she states her head feels heavy when she sits up and needs to lay back down. States this was sudden onset while she was looking down at her phone after dinner. States her emesis is nonbilious nonbloody. Denies any diarrhea, constipation. Denies any other intra-abdominal surgeries. Has no cardiac history. Family members do have a history of cardiac disease. Denies any shortness of breath, fevers, cough. No other acute complaints at this time. Presents for further evaluation.Describes the dizziness as a lightheaded sensation, denies room spinning or vertigo sensation. - Related Data Home Medications Medication Instructions Recorded Confirmed Atorvastatin [Lipitor] 40 mg PO DAILY 10/27/22 10/27/22 Dextroamphetamine/Amphetamine 10 mg PO BID@0900,1400 10/27/22 10/27/22 [Adderall] Ergocalciferol [Vitamin D2 (1250 1,250 mcg PO MO 10/27/22 10/27/22 Mcg = 90450 Iu)] Lisinopril-Hctz 10-12.5 mg 1 tab PO DAILY 10/27/22 10/27/22 [Zestoretic 10-12.5] Pantoprazole Sodium [Protonix] 40 mg PO DAILY 10/27/22 10/27/22 Previous Rx's Medication Instructions Recorded Azithromycin [Zithromax Z Pack] 1 tab PO DIRECTED #6 tab 10/27/22 Cephalexin [Keflex] 500 mg PO Q12HR 5 Days #10 cap 11/18/22 Meclizine [Antivert] 25 mg PO BID PRN 7 Days #14 tab 11/18/22 Allergies Allergy/AdvReac Type Severity Reaction Status Date / Time sulfamethoxazole AdvReac Nausea & Verified 11/17/22 21:23 [From ] Vomiting trimethoprim [From ] AdvReac Nausea & Verified 11/17/22 21:23 Vomiting Review of Systems ROS Statement: Those systems with pertinent positive or pertinent negative responses have been documented in the HPI. Review of Systems: CONST: Denies fever EYES: Denies blurry vision ENT: Denies nasal congestion C/V: Denies Chest pain RESP: Denies shortness of breath GI: Endorses abdominal pain : Denies dysuria SKIN: Denies rash. MSK: Denies joint pain. NEURO: Denies headache ROS Other: All systems not noted in ROS Statement are negative. 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 lap with lysis of adhesions. oophorectomy. ammy masectomy with reconstruction. COLONOSCOPY/EGD Past Anesthesia/Blood Transfusion Reactions: Previous Problems w/ Anesthesia, Motion Sickness Additional Past Anesthesia/Blood Transfusion Reaction / Comment(s): pt states she experienced some apnea post op Past Psychological History: Anxiety, Bipolar, Depression, PTSD Smoking Status: Never smoker - Past Family History Mother Family Medical History: Cancer Additional Family Medical History / Comment(s): of breast cancer at age 40 Father Family Medical History: Coronary Artery Disease (CAD), Myocardial Infarction (ND) Additional Family Medical History / Comment(s): "hardening of arteries", " from cardiac arrest due to pancreatitis" Sister(s) Family Medical History: Cancer Additional Family Medical History / Comment(s): 1 sister=breast cancer and melanoma. 2nd sister=multiple myeloma General Exam - General Exam Comments Initial Comments: General: Appears in mild distress. HEAD: Normal with no signs of head trauma. EYES: PERRLA, EOMI, conjunctiva normal, no discharge. Pupils are 3 mm equal bilaterally. ENT: Hearing grossly intact, normal oropharynx. RESPIRATORY: Clear breath sounds bilaterally. No wheezes, rales, or rhonchi. C/V: Regular rate and rhythm. S1 and S2 auscultated, peripheral pulses 2+ and intact throughout ABD: Abdomen is soft, nondistended. Tender to palpation in the epigastric and right upper quadrant region. No guarding. No rebound tenderness. No peritoneal signs. EXT: Normal range of motion, no obvious deformity SKIN: No rashes or lesions observed on exposed skin. NEURO: Alert and oriented 4. NIH is 0. GCS of 15. No focal deficits. Course Vital Signs 11/17/22 11/17/22 11/18/22 21:17 23:50 02:25 Temperature 97.5 F L Pulse Rate 71 60 61 Respiratory 20 19 18 Rate Blood Pressure 135/84 123/68 132/59 O2 Sat by Pulse 100 97 97 Oximetry Medical Decision Making - Medical Decision Making Was pt. sent in by a medical professional or institution (, PA, BACTERIOLOGIST MEDICAL, urgent care, hospital, or [place] health care facility...) When possible be specific @ -No Did you speak to anyone other than the patient for history (EMS, parent, family, police, friend...)? What history was obtained from this source @ -No Did you review nursing and triage notes (agree or disagree)? Why? @ -I reviewed and agree with nursing and triage notes Were old charts reviewed (outside hosp., previous admission, EMS record, old E KG, old radiological studies, urgent care reports/EKG's, [place] health care facility records)? Report findings @ -Old charts reviewed. Differential Diagnosis (chest pain, altered mental status, abdominal pain women, abdominal pain men, vaginal bleeding, weakness, fever, dyspnea, syncope, headache, dizziness, GI bleed, back pain, seizure, CVA, palpatations, mental health, musculoskeletal)? @ -Differential Abdominal Pain Women: Appendicitis, Cholecystitis, diverticulosis, ischemic bowel, pancreatitis, hepatitis, UTI, gastroenteritis, AAA, incarcerated hernia, bowel obstruction, constipation, inflammatory bowel, hepatitis, peptic ulcer disease, splenic infarction, perforated viscus, vulvitis, ovarian torsion, PID, kidney stone, placenta abruption, this is not meant to be an all-inclusive list EKG interpreted by me (3pts min.). @ -As above X-rays interpreted by me (1pt min.). @ -Chest x-ray reveals no obvious acute cardiopulmonary process. CT interpreted by me (1pt min.). @ -CT abdomen and pelvis reveals no obvious acute intra-abdominal process. U/S interpreted by me (1pt. min.). @ -None done What testing was considered but not performed or refused? (CT, X-rays, U/S, dain bs)? Why? @ -None What meds were considered but not given or refused? Why? @ -None Did you discuss the management of the patient with other professionals (professionals i.e. DrJocelyne, PA, BACTERIOLOGIST MEDICAL, lab, RT, psych nurse, dialysis social worker, cage supervisor, teacher, real estate utilization officer, telehealth case manager)? Give summary @ -No Was smoking cessation discussed for >3mins.? @ -No Was critical care preformed (if so, how long)? @ -No Were there social determinants of health that impacted care today? How? (Homelessness, low income, unemployed, alcoholism, drug addiction, transportation, low edu. Level, literacy, decrease access to med. care, skilled nursing, rehab)? @ -No Was there de-escalation of care discussed even if they declined (Discuss DNR or withdrawal of care, Hospice)? DNR status @ -No What co-morbidities impacted this encounter? (DM, HTN, Smoking, COPD, CAD, Cancer, CVA, ARF, Chemo, Hep., AIDS, mental health diagnosis, sleep apnea, morbid obesity)? @ -None Was patient admitted / discharged? Hospital course, mention meds given and route, prescriptions, significant lab abnormalities, going to OR and other pertinent info. @ -Based on the patient's presentation and physical exam, I'm concerned for possible intra-abdominal problem process for the patient having symptoms. However cannot rule out atypical ACS presentation. We'll send screening EKG, abdominal labs, troponin. CT and pelvis as well as chest x-ray will also be obtained. She was in agreement with this plan. Dizziness does not seem to be vertiginous in nature she describes as lightheadedness. Neuro exam normal. We will administer IV fluids, meclizine, Protonix, Reglan, as well as a GI cocktail. Vital signs within acceptable limits. She was in agreement with this plan. EKG shows no signs of acute ischemia.CT imaging unremarkable. X-ray imaging unremarkable. Laboratory studies are remarkable for an undetectable troponin. Urinalysis concerning for possible UTI, mild hypokalemia which was replenished, as well as a lactic acidosis of 3.6. Patient was given an additional 1 L fluid bolus and we will repeat lactic acid there is delay in obtaining results of CT imaging. Patient was in agreement with this plan. Repeat lactic acid within normal limits. CT imaging had returned by this point and accepted the patient. She is feeling improved and is currently asymptomatic. Able to ambulate without issue. Discussed her workup. Over concern for early UTI we will obtain a urine culture. She'll be on Percocet on antibiotics and will receive a dose here. She was in agreement this plan. I will also provide her with a prescription for meclizine. She was in agreement this plan. Strict return precautions discussed. I will provide the patient with a prescription for meclizine, Keflex. I in structed the patient to follow up with their PCP in the next 1-3 days. I explained that the patient should return to the emergency department if they experience any worsening symptoms. Strict return precautions were discussed with the patient. The patient expressed understanding of these instructions. I answered all questions that the patient had. The patient was discharged home in good condition with their prescriptions and follow up information. Undiagnosed new problem with uncertain prognosis? @ -No Drug Therapy requiring intensive monitoring for toxicity (Heparin, Nitro, Insulin, Cardizem)? @ -No Were any procedures done? @ -No Diagnosis/symptom? @ -Nausea and vomiting, dehydration, dizziness, UTI Acute, or Chronic, or Acute on Chronic? @ -Acute Uncomplicated (without systemic symptoms) or Complicated (systemic symptoms)? @ -Complicated Side effects of treatment? @ -none Exacerbation, Progression, or Severe Exacerbation] @ -no Poses a threat to life or bodily function? @ -no - Lab Data Result diagrams: 11/17/22 21:59 11/17/22 21:59 Lab Results 11/17/22 11/17/22 11/17/22 Range/Units 21:59 21:59 21:59 WBC 8.2 (3.8-10.6) k/uL RBC 4.44 (3.80-5.40) m/uL Hgb 13.5 (11.4-16.0) gm/dL Hct 39.1 (34.0-46.0) % MCV 88.1 (80.0-100.0) fL MCH 30.4 (25.0-35.0) pg MCHC 34.5 (31.0-37.0) g/dL RDW 13.3 (11.5-15.5) % Plt Count 258 (150-450) k/uL MPV 8.8 Neutrophils % 39 % Lymphocytes % 51 % Monocytes % 5 % Eosinophils % 2 % Basophils % 1 % Neutrophils # 3.2 (1.3-7.7) k/uL Lymphocytes # 4.2 (1.0-4.8) k/uL Monocytes # 0.4 (0-1.0) k/uL Eosinophils # 0.2 (0-0.7) k/uL Basophils # 0.1 (0-0.2) k/uL PT 9.9 L (10.0-12.5) sec INR 0.9 (<1.2) APTT 20.3 L (22.0-30.0) sec Sodium 139 (137-145) mmol/L Potassium 3.3 L (3.5-5.1) mmol/L Chloride 105 (98-107) mmol/L Carbon Dioxide 20 L (22-30) mmol/L Anion Gap 14 mmol/L BUN 13 (7-17) mg/dL Creatinine 0.76 (0.52-1.04) mg/dL Est GFR (CKD-EPI)AfAm >90 (>60 ml/min/1.73 sqM) Est GFR (CKD-EPI)NonAf >90 (>60 ml/min/1.73 sqM) Glucose 119 H (74-99) mg/dL Lactic Ac Sepsis Rflx Plasma Lactic Acid Lobo (0.7-2.0) mmol/L Calcium 10.0 (8.4-10.2) mg/dL Total Bilirubin 0.7 (0.2-1.3) mg/dL AST 31 (14-36) U/L ALT 31 (4-34) U/L Alkaline Phosphatase 79 (38-126) U/L Troponin I (0.000-0.034) ng/mL Total Protein 7.3 (6.3-8.2) g/dL Albumin 4.5 (3.5-5.0) g/dL Amylase 65 (30-110) U/L Lipase 102 (23-300) U/L Urine Color Urine Appearance (Clear) Urine pH (5.0-8.0) Ur Specific [place] (1.001-1.035) Urine Protein (Negative) Urine Glucose (UA) (Negative) Urine Ketones (Negative) Urine Blood (Negative) Urine Nitrite (Negative) Urine Bilirubin (Negative) Urine Urobilinogen (<2.0) mg/dL Ur Leukocyte Esterase (Negative) Urine RBC (0-5) /hpf Urine WBC (0-5) /hpf Ur Squamous Epith Cells (0-4) /hpf Urine Bacteria (None) /hpf Urine Mucus (None) /hpf Influenza Type A (PCR) (Not Detectd) Influenza Type B (PCR) (Not Detectd) RSV (PCR) (Not Detectd) SARS-CoV-2 (PCR) (Not Detectd) 11/17/22 11/17/22 11/17/22 Range/Units 21:59 21:59 23:00 WBC (3.8-10.6) k/uL RBC (3.80-5.40) m/uL Hgb (11.4-16.0) gm/dL Hct (34.0-46.0) % MCV (80.0-100.0) fL MCH (25.0-35.0) pg MCHC (31.0-37.0) g/dL RDW (11.5-15.5) % Plt Count (150-450) k/uL MPV Neutrophils % % Lymphocytes % % Monocytes % % Eosinophils % % Basophils % % Neutrophils # (1.3-7.7) k/uL Lymphocytes # (1.0-4.8) k/uL Monocytes # (0-1.0) k/uL Eosinophils # (0-0.7) k/uL Basophils # (0-0.2) k/uL PT (10.0-12.5) sec INR (<1.2) APTT (22.0-30.0) sec Sodium (137-145) mmol/L Potassium (3.5-5.1) mmol/L Chloride (98-107) mmol/L Carbon Dioxide (22-30) mmol/L Anion Gap mmol/L BUN (7-17) mg/dL Creatinine (0.52-1.04) mg/dL Est GFR (CKD-EPI)AfAm (>60 ml/min/1.73 sqM) Est GFR (CKD-EPI)NonAf (>60 ml/min/1.73 sqM) Glucose (74-99) mg/dL Lactic Ac Sepsis Rflx Y Plasma Lactic Acid Lobo 3.6 H* (0.7-2.0) mmol/L Calcium (8.4-10.2) mg/dL Total Bilirubin (0.2-1.3) mg/dL AST (14-36) U/L ALT (4-34) U/L Alkaline Phosphatase (38-126) U/L Troponin I <0.012 (0.000-0.034) ng/mL Total Protein (6.3-8.2) g/dL Albumin (3.5-5.0) g/dL Amylase (30-110) U/L Lipase (23-300) U/L Urine Color Urine Appearance (Clear) Urine pH (5.0-8.0) Ur Specific [place] (1.001-1.035) Urine Protein (Negative) Urine Glucose (UA) (Negative) Urine Ketones (Negative) Urine Blood (Negative) Urine Nitrite (Negative) Urine Bilirubin (Negative) Urine Urobilinogen (<2.0) mg/dL Ur Leukocyte Esterase (Negative) Urine RBC (0-5) /hpf Urine WBC (0-5) /hpf Ur Squamous Epith Cells (0-4) /hpf Urine Bacteria (None) /hpf Urine Mucus (None) /hpf Influenza Type A (PCR) (Not Detectd) Influenza Type B (PCR) (Not Detectd) RSV (PCR) (Not Detectd) SARS-CoV-2 (PCR) (Not Detectd) 11/17/22 11/17/22 11/18/22 Range/Units 23:27 23:50 01:41 WBC (3.8-10.6) k/uL RBC (3.80-5.40) m/uL Hgb (11.4-16.0) gm/dL Hct (34.0-46.0) % MCV (80.0-100.0) fL MCH (25.0-35.0) pg MCHC (31.0-37.0) g/dL RDW (11.5-15.5) % Plt Count (150-450) k/uL MPV Neutrophils % % Lymphocytes % % Monocytes % % Eosinophils % % Basophils % % Neutrophils # (1.3-7.7) k/uL Lymphocytes # (1.0-4.8) k/uL Monocytes # (0-1.0) k/uL Eosinophils # (0-0.7) k/uL Basophils # (0-0.2) k/uL PT (10.0-12.5) sec INR (<1.2) APTT (22.0-30.0) sec Sodium (137-145) mmol/L Potassium (3.5-5.1) mmol/L Chloride (98-107) mmol/L Carbon Dioxide (22-30) mmol/L Anion Gap mmol/L BUN (7-17) mg/dL Creatinine (0.52-1.04) mg/dL Est GFR (CKD-EPI)AfAm (>60 ml/min/1.73 sqM) Est GFR (CKD-EPI)NonAf (>60 ml/min/1.73 sqM) Glucose (74-99) mg/dL Lactic Ac Sepsis Rflx Plasma Lactic Acid Lobo 1.2 (0.7-2.0) mmol/L Calcium (8.4-10.2) mg/dL Total Bilirubin (0.2-1.3) mg/dL AST (14-36) U/L ALT (4-34) U/L Alkaline Phosphatase (38-126) U/L Troponin I (0.000-0.034) ng/mL Total Protein (6.3-8.2) g/dL Albumin (3.5-5.0) g/dL Amylase (30-110) U/L Lipase (23-300) U/L Urine Color Colorless Urine Appearance Clear (Clear) Urine pH 6.0 (5.0-8.0) Ur Specific [place] 1.027 (1.001-1.035) Urine Protein Negative (Negative) Urine Glucose (UA) Negative (Negative) Urine Ketones Negative (Negative) Urine Blood Negative (Negative) Urine Nitrite Negative (Negative) Urine Bilirubin Negative (Negative) Urine Urobilinogen <2.0 (<2.0) mg/dL Ur Leukocyte Esterase Moderate H (Negative) Urine RBC 1 (0-5) /hpf Urine WBC 20 H (0-5) /hpf Ur Squamous Epith Cells 1 (0-4) /hpf Urine Bacteria Rare H (None) /hpf Urine Mucus Rare H (None) /hpf Influenza Type A (PCR) Not Detected (Not Detectd) Influenza Type B (PCR) Not Detected (Not Detectd) RSV (PCR) Not Detected (Not Detectd) SARS-CoV-2 (PCR) Not Detected (Not Detectd) - EKG Data -: EKG Interpreted by Me EKG Comments: 12-lead Electrocardiogram Interpretation Note EKG was reviewed and interpreted by myself. 12-lead ECG performed at 2116 is interpreted by me as revealing normal sinus rhythm at a rate of 69 beats per minute. [place] is normal. [place] interval is 163 ms, QRS durations 117 ms, QTc is 485 ms.. There were no ST or T wave abnormalities to suggest myocardial ischemia or injury. R wave progression across the precordium was satisfactory. By my interpretation this EKG is non-diagnostic for acute ischemia. Disposition Clinical Impression: UTI (urinary tract infection), Dehydration, Dizzy, Nausea and vomiting Disposition: HOME SELF-CARE Condition: Good Instructions (If sedation given, give patient instructions): Urinary Tract Infection in Women (ED), Lightheadedness (ED) Prescriptions: Meclizine [Antivert] 25 mg PO BID PRN 7 Days #14 tab PRN Reason: Vertigo Cephalexin [Keflex] 500 mg PO Q12HR 5 Days #10 cap Is patient prescribed a controlled substance at d/c from ED?: No Referrals: Marlena Mendez MD [Primary Care Provider] - 1-2 days Time of Disposition: 02:15
[2022-11-17 22:20] LABS: Basophils # (A) 0.1 k/uL (0-0.2); Basophils % (A) 1 %; Eosinophils # (A) 0.2 k/uL (0-0.7); Eosinophils % (A) 2 %; HCT 39.1 % (34.0-46.0); HGB 13.5 gm/dL (11.4-16.0); Lymphocytes # (A) 4.2 k/uL (1.0-4.8); Lymphocytes % (A) 51 %; MCH 30.4 pg (25.0-35.0); MCHC 34.5 g/dL (31.0-37.0); MCV 88.1 fL (80.0-100.0); Mean Platelet Volume 8.8; Monocytes # (A) 0.4 k/uL (0-1.0); Monocytes % (A) 5 %; Neutrophils # (A) 3.2 k/uL (1.3-7.7); Neutrophils % (A) 39 %; Platelet Count 258 k/uL (150-450); RBC 4.44 m/uL (3.80-5.40); RDW 13.3 % (11.5-15.5); WBC 8.2 k/uL (3.8-10.6)
[2022-11-17 22:44] LABS: ALT 31 U/L (4-34); AST 31 U/L (14-36); African American GFR (CKD) >90 (>60 ml/min/1.73 sqM); Albumin 4.5 g/dL (3.5-5.0); Alkaline Phosphatase 79 U/L (38-126); Amylase 65 U/L (30-110); Anion Gap 14 mmol/L; Blood Urea Nitrogen 13 mg/dL (7-17); Carbon Dioxide 20 mmol/L (22-30); Chloride 105 mmol/L (98-107); Glucose 119 mg/dL (74-99); Lipase 102 U/L (23-300); Non-African American GFR(CKD) >90 (>60 ml/min/1.73 sqM); Potassium 3.3 mmol/L (3.5-5.1); Sodium 139 mmol/L (137-145); Total Bilirubin 0.7 mg/dL (0.2-1.3); Total Protein 7.3 g/dL (6.3-8.2)
[2022-11-17 22:49] LABS: INR 0.9 (<1.2)
[2022-11-17 23:03] LABS: Partial Thromboplastin Time 20.3 sec (22.0-30.0); Prothrombin Time 9.9 sec (10.0-12.5)
[2022-11-17 23:54] LABS: Appearance,Urine Clear (Clear); Bacteria,Urine Rare /hpf; Bilirubin,Urine Negative (Negative); Blood,Urine Negative (Negative); Color,Urine Colorless; Glucose,Urine (UA) Negative (Negative); Ketones,Urine Negative (Negative); Leukocyte Esterase,Urine Moderate (Negative); Mucus,Urine Rare /hpf; Nitrite,Urine Negative (Negative); Protein,Urine Negative (Negative); RBC,Urine 1 /hpf (0-5); Specific Gravity,Urine 1.027 (1.001-1.035); Squamous Epithelial Cell,Urine 1 /hpf (0-4); Urobilinogen,Urine <2.0 mg/dL (<2.0); WBC,Urine 20 /hpf (0-5)
[2022-11-18] MEDS ORDERED: POTASSIUM CHLORIDE ER 20 MEQ TAB.ER PO STA (01:01)
--- NOTE | 2022-11-18 02:03 | CT ---
EXAM: CT Abdomen and Pelvis With Intravenous Contrast CLINICAL HISTORY: abdominal pain. RUQ and epigastric pain TECHNIQUE: Axial computed tomography images of the abdomen and pelvis with intravenous contrast. CTDI is 31.26 mGy and DLP is 1673.2 mGy-cm. This CT exam was performed using one or more of the following dose reduction techniques: automated exposure control, adjustment of the mA and/or kV according to patient size, and/or use of iterative reconstruction technique. COMPARISON: No relevant prior studies available. FINDINGS: Lung bases: Unremarkable. No mass. No consolidation. ABDOMEN: Liver: Unremarkable. No mass. Gallbladder and bile ducts: The gallbladder is not identified and is presumed surgically absent. No biliary dilatation. No calcified choledocholithiasis. Pancreas: Unremarkable. No mass. No ductal dilation. Spleen: Unremarkable. No splenomegaly. Adrenals: Unremarkable. No mass. Kidneys and ureters: The kidneys demonstrate normal enhancement without hydronephrosis or obstructing nephrolithiasis. Delayed phase imaging demonstrates normal excreted contrast in the renal collecting systems. Stomach and bowel: Mild to moderate retained oral contents noted in the stomach. No gastric mucosal thickening or retrograde filling of the distal thoracic esophagus. No bowel obstruction. No definite asymmetric bowel mucosal abnormality. Mild stool burden. No diverticulitis. PELVIS: Appendix: The appendix is not identified. No secondary findings to suggest acute appendicitis. Bladder: Unremarkable. No mass. Reproductive: Status post hysterectomy. ABDOMEN and PELVIS: Intraperitoneal space: Unremarkable. No free air. No significant fluid collection. Bones/joints: No acute fracture. No dislocation. Soft tissues: Unremarkable. Vasculature: Unremarkable. No abdominal aortic aneurysm. Lymph nodes: Unremarkable. No enlarged lymph nodes. IMPRESSION: 1. The gallbladder is not identified and is presumed surgically absent. No biliary dilatation. No calcified choledocholithiasis. 2. No bowel obstruction. No definite asymmetric bowel mucosal abnormality. Mild stool burden. No diverticulitis. No free intraperitoneal fluid or pneumoperitoneum.
[2022-11-18 02:41] VITALS: BP 132/59; PULSE 61; RESP 18
--- NOTE | 2022-11-18 05:13 | XR ---
EXAM: XR Chest, 2 Views CLINICAL HISTORY: ITS.REASON XR Reason: abdominal pain TECHNIQUE: Frontal and lateral views of the chest. COMPARISON: 10/27/2022 FINDINGS: Lungs: Unremarkable. No consolidation. The pulmonary vasculature demonstrates no significant radiographic abnormality. Pleural space: Unremarkable. No pneumothorax. No large pleural effusion. Heart: The cardiac silhouette is stable and within normal limits. Mediastinum: The mediastinal contours are stable and unremarkable. The trachea is midline. Bones/joints: Unremarkable. Upper abdomen: No pneumoperitoneum underlying the hemidiaphragms. IMPRESSION: No acute cardiopulmonary process or significant alteration from the previous examination.
== END 2022-11-18 02:32 | disposition home or self-care (01) ==
LOC: EC 21:14
DX: N39.0 Urinary tract infection, site not specified (principal); E86.0 Dehydration; R42 Dizziness and giddiness; R11.2 Nausea with vomiting, unspecified; I10 Essential (primary) hypertension; E78.5 Hyperlipidemia, unspecified; F31.9 Bipolar disorder, unspecified; Z79.899 Other long term (current) drug therapy; Z88.2 Allergy status to sulfonamides; Z88.8 Allergy status to other drugs, medicaments and biological substances; Z90.49 Acquired absence of other specified parts of digestive tract; Z20.822 Contact with and (suspected) exposure to COVID-19
CPT/HCPCS: 36415 ×2; 93005; 80053; 82150; 83605 ×2; 83690; 84484; 85025; 85610; 85730; 81001; 87086; 87636; 71046; 74177; 99285; 96374; 96375; 96361 ×3; J2765; C9113; Q9967; 87077; 87186

== ENCOUNTER → 2023-01-25 | Outpatient (CLI) | payer MEDICARE, OTHER ==
--- NOTE | 2023-01-25 14:59 | P.PN ---
Subjective DATE: 01/25/2023 FOLLOW UP VISIT. Patient with obstructive sleep apnea hypopnea syndrome return to sleep center for follow-up visit for treatment of obstructive sleep apnea-hypopnea syndrome and narcolepsy. Information from previous visit have been reviewed. Patient is on treatment with Adderall to prevent sleepiness during the day. Patient is using PAP equipment every night for the whole night, getting PAP supplies in time. The patient does not have significant problems with the mask, PAP unit and humidification. [place] sleepiness scale is 10, which is borderline. I checked information from PAP unit. PAP unit pressure 5-11, average 8.8 cm H2O. Usage is 80 % for more then 4 hours, average 6.25 hours per night. Leak is 1.3 l/m, which is perfect. Apnea Hypopnea Index is 1.7, which is normal. MEDICATIONS:1. Lipitor 40 mg once a day 2. Lisinopril/hydrochlorothiazide 10-12.5 mg once a day 3. Adderall 10 mg twice a day 4. Protonix 40 mg once a day 5. Vitamin D During physical exam: GENERAL: A pleasant patient without any distress. VITAL SIGNS: BP 111/81, HR 85, RR 12 , weight 229.2, temperature 98.6, oxygen saturation at room air 98 % . HEENT: PERRLA, EOMI.low position of soft palate, Mallapati 3 . NECK: Supple. No JVD. LUNGS: Clear to percussion and to auscultation. Good air exchange. No wheezing or rhonchi. HEART: S1, S2 regular. ABDOMEN: Soft and nontender. Slightly obese EXTREMITIES: No clubbing or cyanosis. MACHINE II COREMAKER: Awake, alert, and oriented x3. No focal deficit. Impressions: 1. Obstructive sleep apnea-hypopnea syndrome. Patient demonstrated good compliance with treatment, benefiting from treatment. 2. Narcolepsy, alertness on control with Adderall. 3. Obesity, BMI 35.6, patient increased his weight on 2 pounds comparing with previous visit. 4. Hypertension. 5. History of depression. 6. History of anxiety. 7. History of bipolar disorder. 8. Status post bilateral mastectomy. 9. Status post total hysterectomy. Plan: 1. Continue using PAP equipment every night for the whole night. 2. I will maintain prescription for Adderall 10 mg twice a day. 3. PAP unit should stay lower then position of the head. 4. Advised patient to remove all remaining water from humidifier canister daily and make it dry after each usage. Refill canister with fresh distilled water before each usage. 5. Sleep hygiene with regular time in bed for at least 8 hours. 6. Precautions related to driving. No driving if feel any sleepiness. 7. I will maintain prescription for PAP supplies including mask, tube, filters. 8. Watching and losing weight. 9. Follow up visit in 6 months or earlier if patient has any problems. Thank you very much for allowing me to participate in the management of your patient. Peter Andre MD, PhD, FAASM. Diplomat of [place] [employer], Sleep Medicine Board by [place] [employer] Door Cutter [facility] [place]
== END ==
LOC: 3 N SLEEP 14:29
PROVIDERS: ATTEND Internal Medicine
DX: G47.33 Obstructive sleep apnea (adult) (pediatric) (principal); G47.419 Narcolepsy without cataplexy; E66.9 Obesity, unspecified; I10 Essential (primary) hypertension; F31.9 Bipolar disorder, unspecified; F41.9 Anxiety disorder, unspecified; Z68.35 Body mass index [BMI] 35.0-35.9, adult; Z79.899 Other long term (current) drug therapy; Z90.13 Acquired absence of bilateral breasts and nipples; Z90.710 Acquired absence of both cervix and uterus; Z99.89 Dependence on other enabling machines and devices; Z88.2 Allergy status to sulfonamides; Z88.1 Allergy status to other antibiotic agents
CPT/HCPCS: 99212

== ENCOUNTER → 2023-05-31 | Outpatient (CLI) | payer MEDICARE, OTHER ==
--- NOTE | 2023-05-31 12:13 | P.PN ---
Subjective DATE: 05/31/2023 FOLLOW UP VISIT. Patient with obstructive sleep apnea hypopnea syndrome return to sleep center for follow-up visit for treatment of narcolepsy and obstructive sleep apnea hypopnea syndrome. Information from previous visit have been reviewed. Patient is on treatment with Adderall 10 mg in the morning and at 2 PM, but with this regimen presently history started to feel significant sleepiness during the day Patient is using PAP equipment every night for the whole night, getting PAP supplies in time. The patient does not have significant problems with the mask, PAP unit and humidification. [place] sleepiness scale is 7. I checked information from PAP unit. PAP unit pressure 5-11, average 9.2 cm H2O. Usage is 87% and 83% for more then 4 hours, average 8.5 hours per night. Leak is 1.4 l/m, which is in acceptable range. Apnea Hypopnea Index is 1.7, which is normal. MEDICATIONS:1. Lipitor 40 mg once a day 2. Lisinopril/hydrochlorothiazide 10-12.5 mg once a day 3. Protonix 40 mg once a day 4. Adderall 10 mg twice a day During physical exam: GENERAL: A pleasant patient without any distress. VITAL SIGNS: Please see below. HEENT: PERRLA, EOMI.low position of soft palate, Mallapati 3 . NECK: Supple. No JVD. LUNGS: Clear to percussion and to auscultation. Good air exchange. No wheezing or rhonchi. HEART: S1, S2 regular. ABDOMEN: Soft and nontender.[] EXTREMITIES: No clubbing or cyanosis. FINAL ASSEMBLY WORKER: Awake, alert, and oriented x3. No focal deficit. Impressions: 1. Obstructive sleep apnea-hypopnea syndrome. Patient demonstrated great compliance with treatment, benefiting from treatment. 2. Narcolepsy. 3. Obesity, weight 230.8 about the same as during previous visit. 4. History of depression. 5. History of anxiety. 6. History of bipolar. 7. Hypertension. 8. Status post total hysterectomy. 9. Status post bilateral mastectomy. Plan: 1. Continue using PAP equipment every night for the whole night. 2. Patient will continue treatment with Adderall, dose will be increased to 15 mg in the morning and at 2 PM. 3. PAP unit should stay lower then position of the head. 4. Advised patient to remove all remaining water from humidifier canister daily and make it dry after each usage. Refill canister with fresh distilled water before each usage. 5. Sleep hygiene with regular time in bed for at least 8 hours. 6. Precautions related to driving. No driving if feel any sleepiness. 7. I will maintain prescription for PAP supplies including mask, tube, filters. 8. Follow up visit in 6 months or earlier if patient has any problems. 9. Watching and losing weight. Thank you very much for allowing me to participate in the management of your patient. Peter Andre MD, PhD, FAASM. Diplomat of [employer], Sleep Medicine Board by [employer] [facility] [place] Objective - Vital Signs Vital signs: Vital Signs Temp 98.1 F 05/31/23 11:49 Pulse 99 05/31/23 11:49 Resp 18 05/31/23 11:49 BP 139/87 05/31/23 11:49 Pulse Ox 98 05/31/23 11:49 FiO2 Intake & Output 05/30/23 05/31/23 05/31/23 18:59 06:59 18:59 Weight 104.553 kg
[2023-05-31 12:28] VITALS: BP 139/87; PULSE 99; RESP 18; TEMP 98.1
== END ==
LOC: 3 N SLEEP 10:54
PROVIDERS: ATTEND Internal Medicine
DX: G47.33 Obstructive sleep apnea (adult) (pediatric) (principal); G47.419 Narcolepsy without cataplexy; E66.9 Obesity, unspecified; I10 Essential (primary) hypertension; Z90.13 Acquired absence of bilateral breasts and nipples; Z90.710 Acquired absence of both cervix and uterus; Z86.59 Personal history of other mental and behavioral disorders; Z79.899 Other long term (current) drug therapy; Z88.2 Allergy status to sulfonamides; Z88.1 Allergy status to other antibiotic agents
CPT/HCPCS: 99212

== ENCOUNTER 2023-09-21 09:00 | Day surgery (SDC) | payer MEDICARE, OTHER ==
[2023-09-21] MEDS ORDERED: ONDANSETRON 4 MG/2 ML VIAL ONE (14:31)
[2023-09-21] MEDS ORDERED: LIDOCAINE 1% INJ 10MG/ML (20 ML MDV) ONE (14:42)
[2023-09-21] MEDS ORDERED: PROPOFOL 10 MG/ML 20 ML VIAL IV ONE (14:42)
--- NOTE | 2023-09-28 15:55 | OP ---
OPERATIVE REPORT DATE OF SERVICE : 09/21/2023 REQUESTING PHYSICIAN: Dr. Marlena Mendez. BRIEF HISTORY: The patient is a 53-year-old pleasant white female scheduled for an upper endoscopy as a part of evaluation of longstanding history of GERD. She is presently on Protonix 40 mg daily and she continues to have daily symptoms and hence scheduled for upper endoscopy to evaluate further. PROCEDURE PERFORMED: EGD with biopsy. PREOPERATIVE DIAGNOSIS: Longstanding history of GERD, IV sedation per Anesthesia. DESCRIPTION OF PROCEDURE: After informed consent was obtained from the patient, she was brought into the endoscopy unit. IV conscious sedation was administered by Anesthesia on continuous monitoring. Initially upper endoscopy was done. The Olympus esophagus intubated without any difficulty and was gradually advanced the scope into the stomach and duodenum 2nd part of the duodenum appeared normal. The scope at this time was withdrawn to the stomach, adequately insufflated with air and upon careful examination because of antrum and mild gastritis, biopsies for H pylori were done. Body of the stomach appeared normal. On retroflexion, cardia, fundus appeared normal. Scope was then withdrawn. There were multiple small gastric polyps noted in the gastric body of the stomach and biopsies were done from this area. The scope at this time was withdrawn into the esophagus. The GE junction was located at 38 cm from the incisors. Small hiatal hernia noted. There were 2 superficial erosions in the distal esophagus consistent with LA grade B reflux esophagitis. The rest of the esophagus appeared normal. The patient tolerated the procedure well. IMPRESSION: 1. Small hiatal hernia. 2. Two linear erosions in the distal esophagus consistent with LA grade B reflux esophagitis. 3. Multiple small gastric polyps status post biopsy. 4. Mild antral gastritis. RECOMMENDATIONS: Findings of this examination were discussed with the patient as well as the family, she was advised to follow up with the biopsy results. In the meantime, I recommend to increase the Protonix to 40 mg twice daily and take it half an hour before breakfast and dinner time and follow anti-reflux measures. If she still remains symptomatic, she was advised to follow up in the office. MMODL / IJN: [id number] /
== END 2023-09-21 15:25 ==
LOC: ORWHC2ENDO 09:00
PROVIDERS: ATTEND Internal Medicine Gastroenterology
DX: K29.50 Unspecified chronic gastritis without bleeding (principal); K31.7 Polyp of stomach and duodenum; K21.9 Gastro-esophageal reflux disease without esophagitis; K44.9 Diaphragmatic hernia without obstruction or gangrene; I10 Essential (primary) hypertension; E78.5 Hyperlipidemia, unspecified; G47.33 Obstructive sleep apnea (adult) (pediatric); Z98.890 Other specified postprocedural states; Z79.899 Other long term (current) drug therapy
CPT/HCPCS: 43239; 88305

== ENCOUNTER → 2024-01-17 | Outpatient (CLI) | payer MEDICARE ==
[2024-01-17 15:51] VITALS: BP 120/80; PULSE 94; RESP 16; TEMP 98.1
--- NOTE | 2024-01-17 17:51 | P.PROGSL ---
Subjective DATE: 01/17/2024 FOLLOW UP VISIT. Patient with obstructive sleep apnea hypopnea syndrome return to sleep center for follow-up visit. Information from previous visit have been reviewed. Patient is on treatment with Adderall 15 mg in the morning and at 2 PM for narcolepsy Patient is using PAP equipment every night for the whole night, getting PAP supplies in time. The patient does not have significant problems with PAP unit and humidification. Patient has some discomfort related to nasal mask. [place] sleepiness scale is 2, which is perfect. I checked information from PAP unit. PAP unit pressure 5-11, average 9.6 cm H2O. Usage is 90% for more then 4 hours, average 8 hours per night. Leak is in good range 3.3 l/m. Apnea Hypopnea Index is 1.7, which is perfect l. MEDICATIONS have been reviewed, please see below. During physical exam: GENERAL: A pleasant patient without any distress. VITAL SIGNS: Please see below, weight is 237 lbs. HEENT: PERRLA, EOMI.low position of soft palate, Mallapati 3. NECK: Supple. No JVD. LUNGS: Clear to percussion and to auscultation. Good air exchange. No wheezing or rhonchi. HEART: S1, S2 regular. ABDOMEN: Soft and nontender. Slightly obese EXTREMITIES: No clubbing or cyanosis. FITTER MECHANIC: Awake, alert, and oriented x3. No focal deficit. Impressions: 1. Obstructive sleep apnea-hypopnea syndrome. Patient demonstrated great compliance with treatment, benefiting from treatment. 2. Mild obesity, BMI 36.8. 3. Narcolepsy. 4. History of depression. 5. History of anxiety. 6. History of bipolar. 7. Hypertension. 8. Status post total hysterectomy. 9. Status post bilateral mastectomy. Plan: 1. Continue using PAP equipment every night for the whole night. We will try nasal pillow mask AirFit P10. 2. Sleep hygiene with regular time in bed for at least 7.5-8 hours 3. PAP unit should stay lower then position of the head. 4. Advised patient to remove all remaining water from humidifier canister daily and make it dry after each usage. Refill canister with fresh distilled water before each usage. 5. Watching weight. 6. Precautions related to driving. No driving if feel any sleepiness. 7. I will maintain prescription for PAP supplies including mask, tube, filters. 8. Follow up visit in 8 months or earlier if patient has any problems. Thank you very much for allowing me to participate in the management of your patient. Peter Andre MD, PhD, FAASM. Diplomat of [employer], Sleep Medicine Board by [employer] Rug Underlay Machine Operator [facility] [place] Objective - Vital Signs Vital Signs: Vital Signs Temp 98.1 F 01/17/24 15:49 Pulse 94 01/17/24 15:49 Resp 16 01/17/24 15:49 BP 120/80 01/17/24 15:49 Pulse Ox 95 01/17/24 15:49 FiO2 Intake & Output 01/16/24 01/17/24 01/17/24 18:59 06:59 18:59 Weight 107.501 kg Home Medications: Home Medications Medication Instructions Recorded Confirmed Type Atorvastatin [Lipitor] 40 mg PO DAILY 10/27/22 01/17/24 History Azithromycin [Zithromax Z Pack] 1 tab PO DIRECTED #6 tab 10/27/22 Rx Dextroamphetamine/Amphetamine 10 mg PO BID@0900,1400 10/27/22 01/17/24 History [Adderall] Ergocalciferol [Vitamin D2 (1250 1,250 mcg PO MO 10/27/22 01/17/24 History Mcg = 94644 Iu)] Lisinopril-Hctz 10-12.5 mg 1 tab PO DAILY 10/27/22 01/17/24 History [Zestoretic 10-12.5] Pantoprazole Sodium [Protonix] 40 mg PO DAILY 10/27/22 01/17/24 History Cephalexin [Keflex] 500 mg PO Q12HR 5 Days #10 cap 11/18/22 Rx Meclizine [Antivert] 25 mg PO BID PRN 7 Days #14 tab 11/18/22 Rx
== END ==
LOC: 3 N SLEEP 14:58
PROVIDERS: ATTEND Internal Medicine
DX: G47.33 Obstructive sleep apnea (adult) (pediatric) (principal); I10 Essential (primary) hypertension; E66.9 Obesity, unspecified; Z68.36 Body mass index [BMI] 36.0-36.9, adult; Z88.2 Allergy status to sulfonamides; Z90.710 Acquired absence of both cervix and uterus; Z90.13 Acquired absence of bilateral breasts and nipples; Z86.59 Personal history of other mental and behavioral disorders
CPT/HCPCS: 99212